=== PATIENT | male | born 1970 | race Caucasian/White ===

== ENCOUNTER 2017-03-12 16:18 | Emergency (ER) | payer OTHER ==
[~2017-03-12] VITALS: Ht 170.2 cm; Wt 85.0 kg
[~2017-03-12 16:18] MED LIST: HYDR25 PO; PRED20 PO
[2017-03-12 17:00] VITALS: BP 153/90; PULSE 70; RESP 18; TEMP 98.7; O2SAT 95
--- NOTE | 2017-03-12 20:44 | PD ---
HPI Chief Complaint: Psychiatric Symptoms Time Seen by Provider: 20:40 Travel History International Travel<30 days: No Contact w/Intl Traveler<30days: No Traveled to known affect area: No History of Present Illness HPI 46-year-old male presents to the ED under Reynoso act for psychiatric evaluation. The patient was transferred from [facility]. Her Reynoso act paperwork the patient states he was feeling suicidal and planned to overdose. On presentation the patient does endorse suicidal thoughts and intent to overdose. He endorses extensive psychiatric history, previous suicide attempts and previous psychiatric hospitalization. He has a history of mitral valve replacement but currently denies chest pain or any other somatic symptoms. PFSH Past Medical History Autoimmune Disease: No Bipolar Disorder: Yes Anxiety: Yes Depression: Yes Heart Rhythm Problems: No Cancer: No Cardiac Catheterization: Yes Cardiovascular Problems: Yes (AORTIC VALVE REPLACEMENT) High Cholesterol: Yes Chest Pain: Yes Congestive Heart Failure: No Diabetes: No Diminished Hearing: No Endocrine: No Genitourinary: No Hypertension: Yes Immune Disorder: No Musculoskeletal: No Neurologic: No Psychiatric: Yes Reproductive: No Respiratory: No Past Surgical History Coronary Artery Bypass Graft: No Valve Replacement: Yes (PORCINE HEART VALVE REPLACEMENT 2010) Other Surgery: Yes Family History Family Myocardial Infarction: Yes (FATHER, MATERNAL GRANDFATHER) Social History Alcohol Use: Yes (OCCASIONALLY) Tobacco Use: Yes (2PPW) Substance Use: No Allergies-Medications (Allergen,Severity, Reaction): Coded Allergies: No Known Allergies (Unverified , 12/25/14) Reported Meds & Prescriptions Reported Meds & Active Scripts Active Deltasone (Prednisone) 20 Mg Tab 20 Mg PO BID Atarax 25 Mg Tab (Hydroxyzine Hcl) 25 Mg Tab 25-50 Mg PO Q6 Review of Systems Except as stated in HPI: all other systems reviewed are Neg Physical Exam Narrative GENERAL: Well-nourished, well-developed cooperative white male in no acute distress. SKIN: Focused skin assessment warm/dry. Well-healed midline incision of the chest. No signs of infection. HEAD: Normocephalic. Leroy-sized hairless scar over the left ear. EYES: No scleral icterus. No injection or drainage. NECK: Supple, trachea midline. No JVD or lymphadenopathy. CARDIOVASCULAR: Regular rate and rhythm without murmurs, gallops, or rubs. RESPIRATORY: Breath sounds clear and equal bilaterally. No accessory muscle use. GASTROINTESTINAL: Abdomen soft, protuberant, non-tender, nondistended. Active bowel sounds. MUSCULOSKELETAL: No cyanosis, or edema. Moves extremities spontaneously. BACK: Nontender without obvious deformity. No CVA tenderness. Data Data Last Documented VS Vital Signs Date Time Temp Pulse Resp B/P Pulse Ox O2 Delivery O2 Flow Rate FiO2 03/12/17 17:00 98.7 70 18 153/90 95 Room Air Orders Diet Regular Basic (03/12/17 Dinner) MDM Medical Decision Making Medical Screen Exam Complete: Yes Emergency Medical Condition: Yes Differential Diagnosis Adjustment disorder versus anxiety versus bipolar versus depression versus dementia versus electrolyte disorder versus malingering versus mood disorder versus ODD versus psychosis versus PTSD versus schizophrenia versus schizoaffective disorder versus substance-induced mood disorder versus other Narrative Course 46-year-old male presents to the ED under Reynoso act for psychiatric evaluation. The patient was transferred from [facility]. Her Reynoso act paperwork the patient states he was feeling suicidal and planned to overdose. On presentation the patient does endorse suicidal thoughts and intent to overdose. He endorses extensive psychiatric history, previous suicide attempts and previous psychiatric hospitalization. He has a history of mitral valve replacement but currently denies chest pain or any other somatic symptoms. Vitals reviewed. Physical exam is unremarkable. I reviewed the lab work from the transferring hospital and there are no concerning abnormalities. This patient is medically cleared for psychiatric evaluation. Please see psychiatric notes for disposition. Diagnosis Primary Impression: Medical clearance for psychiatric admission Frances Aragon Mar 12, 2017 20:44
[2017-03-12 21:59] VITALS: BP 160/82; PULSE 64; RESP 18; O2SAT 97
[2017-03-13 02:14] VITALS: BP 137/72; PULSE 56; RESP 19; TEMP 97.5; O2SAT 96
[2017-03-13 06:00] VITALS: BP 152/95; PULSE 61; RESP 18; TEMP 97.5; O2SAT 96
--- NOTE | 2017-03-13 11:14 | PD ---
History of Present Illness Chief Complaint: Psychiatric Symptoms Time Seen by Provider: 11:00 Travel History International Travel<30 Days: No Contact w/Intl Traveler<30days: No Known affected area: No Legal Status Legal Status: Reynoso Act Reynoso Act Signed By: [facility] History of Present Illness: History of Present Illness HPI 46-year-old male with a reported history of depression and anxiety, hx of alcohol abuse who presents to the ED under Reynoso act for psychiatric evaluation. The patient was transferred from [facility] after he presented there with complaints of " having suicidal thoughts w a plan to overdose. EMR is reviewed. One previous ED visit in 2014 for evaluation f anxiety as well as ETOH. he was monitored in [facility] and he did not present any behavioral concerns and no suicidality. This morning he is alert, oriented and cooperative. States " I feel better. I had a lot on my mind. I need counseling. I needed someone to point me in the right direction. I want to apply for disability and get on the right t rack. He acknowledges he reported feeling suicidal and attributes to feeling overwhelmed after he lost his wallet. He does not appear significantly depressed or anxious. There is no psychosis, no fadia. At this time he denies any suicidal or homicidal ideation, intent or plan.He is future oriented and is planning on initiating treatment w [facility] as well as getting all his information in order to apply for social security disability. . PFSH Past Medical History Autoimmune Disease: No Bipolar Disorder: Yes Anxiety: Yes Depression: Yes Heart Rhythm Problems: No Cancer: No Cardiac Catheterization: Yes Cardiovascular Problems: Yes (AORTIC VALVE REPLACEMENT) High Cholesterol: Yes Chest Pain: Yes Congestive Heart Failure: No Diabetes: No Diminished Hearing: No Endocrine: No Genitourinary: No Hypertension: Yes Immune Disorder: No Musculoskeletal: No Neurologic: No Psychiatric: Yes Reproductive: No Respiratory: No Past Surgical History Coronary Artery Bypass Graft: No Valve Replacement: Yes (PORCINE HEART VALVE REPLACEMENT 2010) Other Surgery: Yes Psychiatric History Psychiatric History Hx Psychiatric Treatment: Reports PSYCHIATRIC HISTORY and treated for ANXIETY/DEPRESSION History of Inpatient Treatment: Yes Guns or firearms in home: No Social History Single male. Currently unemployed. Living with his mother. Hx Alcohol Use: Yes (OCCASIONALLY) Hx Tobacco Use: Yes (2PPW) Hx Substance Use: No Other Substances Used: FREE OF ALCOHOL SINCE 2014. DENIES ANY DRUGS. Hx of Substance Use Treatment: Yes Family Psychiatric History Negative Allergies-Medications (Allergen,Severity, Reaction): Coded Allergies: No Known Allergies (Unverified , 12/25/14) Reported Meds & Prescriptions Reported Meds & Active Scripts Active Deltasone (Prednisone) 20 Mg Tab 20 Mg PO BID Atarax 25 Mg Tab (Hydroxyzine Hcl) 25 Mg Tab 25-50 Mg PO Q6 Review of Systems Except as stated in HPI: all other systems reviewed are Neg Exam Alert: Yes [place]: Person (ox4) Mood: Calm Affect: Appropriate Speech: Clear, Logical Eye Contact: Normal Memory Intact: Comment (No impairment) Hallucinations: Other (Negative) Delusions: No Suicidal: Ideation (Negative) Homicidal: Ideation (Negative) Insight/Judgement Poor. Not impaired. MDM Medical Decision Making Medical Record Reviewed: Yes Assessment/Plan 46 year old male with hx of alcohol abuse as well as reported history of depression and anxiety who was placed under a BA a fter he reported suicidal ideation with intent to overdose. The patient did not make any attempt at harming himself. He was monitored and presented no suicidality. Furthermore he presented future oriented with plans to initiate counseling as well as plans to apply for social security. At [facility] he does nto met criteria for BA. BA will be lifted. He will follow up with [facility] and staff will attempt to schedule and appointment for him in [place]. Orders Diet Regular Basic (03/12/17 Dinner) Diet Regular Basic (03/13/17 Breakfast) Results Vital Signs Date Time Temp Pulse Resp B/P Pulse Ox O2 Delivery O2 Flow Rate FiO2 03/13/17 06:00 97.5 61 18 152/95 96 03/13/17 02:14 97.5 56 19 137/72 96 03/12/17 21:59 64 18 160/82 97 03/12/17 17:00 98.7 70 18 153/90 95 Room Air Diagnosis Primary Impression: Medical clearance for psychiatric admission Additional Impression: Adjustment disorder Psychiatrically Cleared: Yes Referrals: [facility] (Out patient) call for appointment Departure Forms: Tests/Procedures Patient Instructions: General Instructions, Stress (ED), Mood Disorders (ED) Med/ Other Pt Specific Info: No Change to Meds Disposition: 01 DISCHARGE HOME Condition: Stable Problem Qualifiers Additional Impression: Adjustment disorder Qualified Code: F43.23 - Adjustment disorder with mixed anxiety and depressed mood Ava Rubio Mar 13, 2017 11:14
== END 2017-03-13 11:33 | disposition home or self-care (01) ==
LOC: NEPJ 16:18
DX: F43.23 Adjustment disorder with mixed anxiety and depressed mood (principal); F31.9 Bipolar disorder, unspecified; F41.9 Anxiety disorder, unspecified; E78.00 Pure hypercholesterolemia, unspecified; I10 Essential (primary) hypertension; F17.200 Nicotine dependence, unspecified, uncomplicated; Z95.2 Presence of prosthetic heart valve
CPT/HCPCS: 99284

== ENCOUNTER 2018-01-14 23:49 | Inpatient (IN) | payer OTHER ==
[~2018-01-14] VITALS: Ht 167.6 cm; Wt 117.5 kg
[2018-01-15 00:03] VITALS: BP 126/73; PULSE 80; RESP 18; TEMP 98.5; O2SAT 100
[2018-01-15 00:28] VITALS: BP 162/77; PULSE 74; RESP 18; TEMP 99.2; O2SAT 94
--- NOTE | 2018-01-15 00:38 | PD ---
HPI Chief Complaint: Psychiatric Symptoms Time Seen by Provider: 00:38 Travel History International Travel<30 days: No Contact w/Intl Traveler<30days: No Traveled to known affect area: No History of Present Illness HPI 47-year-old male presents emergency department as a transfer from [facility] under Reynoso act. Patient tells me he has been depressed, worsening over the last several days.. He has plan to jump out of traffic. He has history of depression but has not been taking his medication. Denies any recent illnesses. He has no acute medical needs. He has no other symptoms to report. PFSH Past Medical History Autoimmune Disease: No Bipolar Disorder: Yes Anxiety: Yes Depression: Yes Heart Rhythm Problems: No Cancer: No Cardiac Catheterization: Yes Cardiovascular Problems: Yes (AORTIC VALVE REPAIR, HTN, HYPERLIPIDEMIA) High Cholesterol: Yes Chest Pain: Yes Congestive Heart Failure: No Diabetes: No Diminished Hearing: No Endocrine: No Genitourinary: No Hypertension: Yes Immune Disorder: No Musculoskeletal: No Neurologic: No Psychiatric: Yes Reproductive: No Past Surgical History Coronary Artery Bypass Graft: No Valve Replacement: Yes (PORCINE HEART VALVE REPLACEMENT 2010) Other Surgery: Yes Social History Alcohol Use: Yes (OCCASIONALLY) Tobacco Use: Yes (2PPW) Substance Use: No Allergies-Medications (Allergen,Severity, Reaction): Coded Allergies: No Known Allergies (Unverified , 12/25/14) Reported Meds & Prescriptions Reported Meds & Active Scripts Active Review of Systems Except as stated in HPI: all other systems reviewed are Neg Physical Exam Narrative GENERAL: Well-nourished male patient, in no acute distress. SKIN: Focused skin assessment warm/dry. HEAD: Atraumatic. Normocephalic. EYES: Pupils equal and round. No scleral icterus. No injection or drainage. ENT: No nasal bleeding or discharge. Mucous membranes pink and moist. NECK: Trachea midline. No JVD. CARDIOVASCULAR: Regular rate and rhythm. No murmur appreciated. RESPIRATORY: No accessory muscle use. Clear to auscultation. Breath sounds equal bilaterally. GASTROINTESTINAL: Abdomen soft, non-tender, nondistended. Hepatic and splenic margins not palpable. MUSCULOSKELETAL: No obvious deformities. No clubbing. No cyanosis. No edema. NEUROLOGICAL: Awake and alert. No obvious cranial nerve deficits. Motor grossly within normal limits. Normal speech. Data Data Last Documented VS Vital Signs Date Time Temp Pulse Resp B/P (MAP) Pulse Ox O2 Delivery O2 Flow Rate FiO2 01/15/18 00:28 99.2 74 18 162/77 (105) 94 Room Air Orders Orders Diet Regular Basic (01/15/18 Breakfast) Psych Screen (01/15/18 00:38) MDM Medical Decision Making Medical Screen Exam Complete: Yes Emergency Medical Condition: Yes Medical Record Reviewed: Yes Differential Diagnosis Mood disorder versus personality disorder versus adjustment reaction disorder Narrative Course 47-year-old male presents emergency department under a Reynoso act as a transfer from [facility]. Patient was medically cleared there. He has no further medical needs at this time. He remains medically cleared to undergo psychiatric screening for further evaluation and disposition. Mental health screening discussed with the patient. Psychiatric screen ordered. Diagnosis Primary Impression: Medical clearance for psychiatric admission Additional Impression: Adjustment disorder Qualified Codes: F43.21 - Adjustment disorder with depressed mood Condition: Stable Amy Romero Jan 15, 2018 00:38
[2018-01-15] MEDS ORDERED: ALUMINUM/MAGNESIUM/SIMETH 30 ML CUP PO PRN (07:30)
[2018-01-15] MEDS ORDERED: MAGNESIUM HYDROXIDE SUSP 30 ML CUP PO PRN (07:30)
[2018-01-15] MEDS ORDERED: LORazepam 2 MG/ML VIAL IV PUSH PRN ×4 (07:30)
[2018-01-15] MEDS ORDERED: LORazepam 0.5 MG TAB PO PRN (07:30)
[2018-01-15] MEDS ORDERED: LORazepam 2 MG TAB PO PRN (07:30)
[2018-01-15] MEDS ORDERED: ACETAMINOPHEN 325 MG TAB PO PRN (07:30)
[2018-01-15] MEDS ORDERED: FLUMAZENIL 0.5 MG/5 ML VIAL IV PUSH PRN (07:30)
[2018-01-15] MEDS ORDERED: LORazepam 2 MG/ML VIAL IM PRN ×2 (07:30)
[2018-01-15] MEDS ORDERED: LORazepam 1 MG TAB PO PRN ×2 (07:30)
[2018-01-15 08:55] VITALS: BP 160/90; PULSE 69; RESP 18; TEMP 99; O2SAT 98
[2018-01-15] MEDS: NICOTINE 21 MG/24 HR PATCH T-DERMAL SCH (09:00)
[2018-01-15 17:39] VITALS: BP 154/82; PULSE 76; RESP 18; TEMP 97; O2SAT 96
[2018-01-15] MEDS: REMOVE OLD NICODERM (NICOTINE) PATCH T-DERMAL SCH (21:00)
[2018-01-16 06:26] VITALS: BP 179/85; PULSE 63; RESP 18; TEMP 97.2
[2018-01-16 07:17] LABS: BICARBONATE 23.6 MEQ/L (21.0-32.0); BLOOD UREA NITROGEN 11 MG/DL (7-18); CALCIUM 8.7 MG/DL (8.5-10.1); CHLORIDE 106 MEQ/L (98-107); CHOLESTEROL 225 MG/DL (120-200); CREATININE 0.73 MG/DL (0.60-1.30); GLOMERULAR FILTRATION RATE 114 ML/MIN (>89); GLUCOSE,RANDOM 105 MG/DL (74-106); SODIUM (NA) 139 MEQ/L (136-145); TRIGLYCERIDES 309 MG/DL (42-150)
[2018-01-16 07:19] LABS: CHOLESTEROL/ HDL RATIO 6.19 RATIO; HDL CHOLESTEROL 36.3 MG/DL (40.0-60.0); LDL CHOLESTEROL 127 MG/DL (0-99)
[2018-01-16] MEDS: NICOTINE 21 MG/24 HR PATCH T-DERMAL SCH ×2 (09:00→11:03)
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
[2018-01-16] MEDS ORDERED: hydrOXYzine HCL 50 MG TAB PO PRN (10:00)
[2018-01-16] MEDS ORDERED: traZODone HCL 100 MG TAB PO PRN (10:00)
[2018-01-16] MEDS ORDERED: amLODIPine BESYLATE 5 MG TAB PO SCH (10:30)
[2018-01-16 10:38] LABS: HEMOGLOBIN A1C 5.3 % (4.3-6.0)
--- NOTE | 2018-01-16 12:57 | PD.CONS ---
HPI Service [facility] Hospitalists Consult Requested By Reason for Consult Diarrhea, HTN, assist with medical management Primary Care Physician No Primary Care Physician Diagnoses: History of Present Illness Written by Aliyah Gómez, acting as scribe for Dr. Valle on 01/16/18 at 13:06. 47-year-old male with past medical history significant for HTN, HLD, gout, COPD , aortic valve replacement, depression, tobacco and alcohol abuse who presented to [place] emergency department as a transfer from [facility] under [place] act. Patient had apparently recently lost his job and is homeless and placed plans of jumping out in front of traffic. He has been admitted to the inpatient psychiatry unit [facility] has been consulted to assist with ongoing medical management as well as evaluation of diarrhea and hypertension. Patient is ambulating the rogers in no acute distress. He denies any fevers, chills, shortness of breath or chest pain. He does endorse a cough and reports it is productive for yellow sputum, also reports wheezing. He quit smoking about 8 months ago and recently began smoking once again smoking about 1 pack per day. Patient states that his diarrhea originally began about a month ago and has been on and off with last episode occurring one week ago. He denies any black, or bloody stools. He does report some on and off nausea for the past month as well with no vomiting, nausea will sometimes be before meals and at times after meals. He denies any abdominal pain but on exam does report some tenderness. He is voiding without hesitancy or dysuria. He reports that he gets his medications from [facility] in [place] although admits to not taking these for some time now. Review of Systems Respiratory: COMPLAINS OF: Wheezing, Sputum production Gastrointestinal: COMPLAINS OF: Abdominal pain, Diarrhea, Nausea, DENIES: Black stools, Bloody stools, Constipation, Vomiting, Difficulty Swallowing Neurologic: DENIES: Headache Except as stated in HPI: all other systems reviewed are Neg Past Family Social History Allergies: Coded Allergies: No Known Allergies (Unverified Allergy, Unknown, 01/15/18) Past Medical History Hypertension Hyperlipidemia Gout COPD Depression Aortic valve malformation Past Surgical History Aortic valve replacement in 2010 Heart catheterizations 2 (2010) Reported Medications Reported Meds & Active Scripts Active Reported Aspir-Low (Aspirin) 81 Mg Tabdr Famotidine 40 Mg Tab 40 Mg PO HS Simvastatin 40 Mg Tab 40 Mg PO HS Isosorbide Mononitrate ER (Isosorbide Mononitrate) 30 Mg Shawn 30 Mg PO DAILY Proair Hfa 8.5 GM Inh (Albuterol Sulfate) 90 Mcg/Act Aer 1 Puff INH Q4H PRN 108 mcg/actuation Active Ordered Medications Current Medications Medications (Trade) Dose Ordered Sig/Jeremías Route Start Time Stop Time Status Last Admin (Tylenol) 650 mg Q4H PRN PO 01/15/18 07:30 (Milk Of Magnesia Liq) 30 ml DAILY PRN PO 01/15/18 07:30 (Mag-Al Plus Susp Liq) 30 ml Q6H PRN PO 01/15/18 07:30 (Habitrol 21 Mg Patch.24 Hr) 1 patch DAILY T-DERMAL 01/15/18 09:00 (Romazicon Inj) 0.2 mg Q1M PRN IV PUSH 01/15/18 07:30 (Ativan) 1 mg Q4H PRN PO 01/15/18 07:30 (Ativan Inj) 1 mg Q4H PRN IV PUSH 01/15/18 07:30 (Ativan) 2 mg Q2H PRN PO 01/15/18 07:30 (Ativan Inj) 2 mg Q2H PRN IV PUSH 01/15/18 07:30 (Ativan Inj) 2 mg Q1H PRN IV PUSH 01/15/18 07:30 (Ativan Inj) 2 mg Q15M PRN IV PUSH 01/15/18 07:30 Miscellaneous Information 1 HS T-DERMAL 01/15/18 21:00 (Atarax) 50 mg Q6H PRN PO 01/16/18 10:00 (Desyrel) 100 mg HS PRN PO 01/16/18 10:00 (Vitamin B1) 100 mg DAILY PO 01/17/18 09:00 (Folate) 1 mg DAILY PO 01/17/18 09:00 (Zofran Odt) 4 mg Q6H PRN PO 01/16/18 13:00 (Duoneb Neb) 1 ampule Q4HR NEB PRN NEB 01/16/18 16:00 (Deltasone) 40 mg DAILY PO 01/17/18 09:00 01/22/18 08:59 (Duoneb Neb) 1 ampule QID NEB NEB 01/16/18 16:00 (Zithromax) 500 mg ONCE ONCE PO 01/16/18 14:00 01/16/18 14:01 (Zithromax) 250 mg DAILY PO 01/17/18 09:00 01/21/18 08:59 (Pepcid) 40 mg HS PO 01/16/18 21:00 (Ecotrin Ec) 81 mg DAILY PO 01/17/18 09:00 (Catapres) 0.1 mg Q6H PRN PO 01/16/18 14:00 Family History Father: of massive heart attack Grandfather: Heart attack Social History Tobacco: Quit smoking 8 months ago and recently started smoking once again 1 pack per day Alcohol use: Quit 6 months ago, drink once again on Tuesday. Patient reports a history of relapse and will drink about 10 beers per sitting. Illicit drug use: Denies Currently homeless, recently fired from [employer] job Physical Exam Vital Signs Vital Signs Date Time Temp Pulse Resp B/P (MAP) Pulse Ox O2 Delivery O2 Flow Rate FiO2 01/16/18 06:26 97.2 63 18 179/85 (116) 01/15/18 17:39 97.0 76 18 154/82 (106) 96 Physical Exam GENERAL: This is a well-developed obese male, in no apparent distress. Ambulating in the hallways. SKIN: No rashes, ecchymoses or lesions. Cool and dry. HEAD: Atraumatic. Normocephalic. EYES: Pupils equal round and reactive. No scleral icterus. No injection or drainage. ENT: Nose without bleeding, purulent drainage. Throat without erythema. Airway patent. NECK: Trachea midline. No JVD. CARDIOVASCULAR: Regular rate and rhythm, 2/6 murmur, no gallops, or rubs. RESPIRATORY: Bilateral expiratory wheezing throughout, no rales, or rhonchi. GASTROINTESTINAL: Abdomen soft, round, obese, tenderness across upper portion.No palpable masses. No guarding. Normal active bowel sounds. MUSCULOSKELETAL: Extremities without clubbing, cyanosis, or edema. No joint tenderness, effusion, or edema noted. No calf tenderness. NEUROLOGICAL: Awake and alert 3. Cranial nerves II through XII grossly intact. Motor and sensory grossly within normal limits. Five out of 5 muscle strength in all muscle groups. Normal speech. Laboratory Laboratory Tests Test 01/16/18 06:06 Blood Urea Nitrogen 11 Creatinine 0.73 Random Glucose 105 Calcium Level 8.7 Sodium Level 139 Potassium Level 4.3 Chloride Level 106 Carbon Dioxide Level 23.6 Anion Gap 9 Estimat Glomerular Filtration Rate 114 Hemoglobin A1c 5.3 Triglycerides Level 309 Cholesterol Level 225 LDL Cholesterol 127 HDL Cholesterol 36.3 Cholesterol/HDL Ratio 6.19 Result Diagram: 01/16/18 06 Assessment and Plan Assessment and Plan 47-year-old male with past medical history significant for HTN, HLD, gout, COPD , aortic valve replacement, depression, tobacco and alcohol abuse who presented to [place] emergency department as a transfer from [facility] under [place] act. Patient had apparently recently lost his job and is homeless and placed plans of jumping out in front of traffic. He has been admitted to the inpatient psychiatry unit [facility] has been consulted to assist with ongoing medical management. Depression/SI - Treatment plan per psychiatry, greatly appreciated HTN, uncontrolled Hx AV replacement (non-mechanical) HLD - Med list updated. Will continue isosorbide with parameters -Clonidine as needed -Monitor heart rate and blood pressure closely due to diarrhea as well as noncompliance with medications previously -Continue low-dose aspirin. -Lipid profile reviewed, patient noncompliant with statin. Check LFTs and resume simvastatin if LFTs are normal -Heart healthy diet COPD, exacerbated - + Wheezing along with productive cough, low-grade temperature yesterday around midnight, 99.2 -We will schedule duo nebs 4 times a day, as needed as needed for shortness of breath and wheezing -Short course of oral prednisone 40 mg 5 days, + productive sputum, treat with azithromycin course -Monitor response clinically Diarrhea Nausea -Ongoing on and off for the past month, no diarrhea since his arrival to psychiatry unit. -We will check stool for enteric pathogen, KUB due to abdominal tenderness and nausea. Check C. difficile patient develops diarrhea. -Pepcid 40 mg nightly, Zofran as needed for nausea -BMP from today reviewed, unremarkable Tobacco/alcohol abuse -Smoking and alcohol cessation advised, nicotine patch -Previously quit drinking 6 months ago, unlikely to go through DTs - CIWA, folic acid and thiamine DVT prophylaxis-ambulating Discussed with patient and nurse. Thank you for this consultation, will continue to follow along. Discussed Condition With This note was transcribed by bonnie Gómez. I, Dr. Dylon Valle personally performed the history, physical exam, and medical decision making; and confirmed the accuracy of the information in the transcribed note. Authenticated by Dr. Dylon Valle on 01/16/18 at 13:11. Aliyah Gómez Jan 16, 2018 12:57 Dylon Valle MD Jan 16, 2018 13:11
[2018-01-16] MEDS ORDERED: ONDANSETRON ODT 4 MG TAB PO PRN (13:00)
[2018-01-16] MEDS ORDERED: ASPI81TA19 (13:12)
[2018-01-16] MEDS ORDERED: ISOS30TA3 PO (13:12)
[2018-01-16] MEDS ORDERED: SIMV40TA PO (13:12)
[2018-01-16] MEDS ORDERED: ALBUAER3 INH (13:12)
[2018-01-16] MEDS ORDERED: FAMO40TA PO (13:12)
[2018-01-16] MEDS ORDERED: cloNIDine HCL 0.1 MG TAB PO PRN (14:00)
[2018-01-16] MEDS ORDERED: AZITHROMYCIN 250 MG TAB PO ONE (14:00)
[2018-01-16 14:23] LABS: ALBUMIN 3.4 GM/DL (3.4-5.0); DIRECT BILIRUBIN ADULT 0.1 MG/DL (0.0-0.2)
[2018-01-16 14:24] LABS: INDIRECT BILIRUBIN 0.2 MG/DL (0.0-0.8); TOTAL BILIRUBIN ADULT 0.3 MG/DL (0.2-1.0); TOTAL PROTEIN 6.8 GM/DL (6.4-8.2)
[2018-01-16 15:11] VITALS: BP 154/77; PULSE 71; RESP 18; TEMP 96.6; O2SAT 97
[2018-01-16] MEDS: RESP: ALBUTEROL 2.5 MG/IPRATROPIUM 0.5 MG NEB (SCH) NEB ×2 (16:00→19:47)
[2018-01-16] MEDS ORDERED: RESP: ALBUTEROL 2.5 MG/IPRATROPIUM 0.5 MG NEB (SCH) NEB (16:00)
--- NOTE | 2018-01-16 18:15 | RADRPT ---
EXAM DATE/TIME: 01/16/2018 16:09 [place] COMPARISON: No previous studies available for comparison. INDICATIONS : Abdominal pain. MEDICAL HISTORY : None. SURGICAL HISTORY : None. ENCOUNTER: Initial ACUITY: 1 month PAIN SCORE: 10/10 LOCATION: Bilateral upper quadrant abdomen. FINDINGS: Supine view of the abdomen was performed. The abdominal bowel gas pattern is normal. No abnormal ma sses, calcifications, or organomegaly is seen. The visualized lower lungs are clear. The osseous str uctures are unremarkable. CONCLUSION: No dilated loops of small or large bowel. Shaan Moncada MD on January 16, 2018 at 18:13 Board Certified Radiologist. This report was verified electronically.
[2018-01-16] MEDS: PRAVASTATIN SOD 80 MG TAB PO SCH (20:37)
[2018-01-16] MEDS: FAMOTIDINE 20 MG TAB PO SCH (20:37)
[2018-01-16] MEDS: REMOVE OLD NICODERM (NICOTINE) PATCH T-DERMAL SCH (21:00)
[2018-01-17 05:57] VITALS: BP 125/64; PULSE 56; RESP 17; TEMP 98.4; O2SAT 97
[2018-01-17 06:11] VITALS: BP 125/64; PULSE 56; RESP 19; TEMP 98.4; O2SAT 97
[2018-01-17] MEDS: RESP: ALBUTEROL 2.5 MG/IPRATROPIUM 0.5 MG NEB (SCH) NEB ×4 (08:00→20:00)
[2018-01-17] MEDS: FOLIC ACID 1 MG TAB PO SCH (08:07)
[2018-01-17] MEDS: AZITHROMYCIN 250 MG TAB PO SCH (08:07)
[2018-01-17] MEDS: ISOSORBIDE MONONITRATE 30 MG CR TAB (IMDUR) PO SCH (08:07)
[2018-01-17] MEDS: ASPIRIN EC 81 MG TABEC PO SCH (08:07)
[2018-01-17] MEDS: THIAMINE HCL 100 MG TAB PO SCH (08:08)
[2018-01-17] MEDS: predniSONE 20 MG TAB PO SCH ×2 (08:09→09:19)
[2018-01-17] MEDS ORDERED: amLODIPine BESYLATE 5 MG TAB PO SCH (09:00)
--- NOTE | 2018-01-17 10:22 | PD.TTN ---
Patient Problems 1. Discharge planning 2. Medication compliance 3. Knowledge deficit 4. Lack of coping skills Progress Toward Goals Provider Present: Dr. Jazzy Zhong Provider Input: 01/17/18 - Patient arrived in transfer from another hospital. Dr. Zhong reported the patient informed him that he will probably be suicidal for the next two to three days. Possible discharge Tuesday or . Psych Therapist Input: 01/17/18 - Counselor has not yet met this patient. Group Spec/RT/OT/ANTOINE Present: ELINA Calloway Group Spec/RT/OT/ANTOINE Input: 01/17/18 - No group participation. Discharge Plan [facility] Documentation Scribe: CHERELLE Stanley Date Resolved: January 17, 2018 Danna Wyman January 17, 2018 10:21
--- NOTE | 2018-01-17 12:26 | HHI.PYPN ---
Subjective Chief Complaint: Depression Remarks Patient seen and examined with nurse. Chart reviewed. Patient did not receive trazodone as this was ordered p.r.n.. Patient did have reported sleep difficulty but did not request hypnotic. Case discussed with nursing staff. No behavioral issues noted overnight. Case discussed in treatment team. On my examination today, the patient complains of irritability. He is ruminating on previous perceived injustices, particularly to do with his mother. He feels that she would change her expectations of patient so that he could never do right in her eyes. As an example, patient relates that she told him to go to scientology and then castigated him for becoming too involved in buddhist. Then, when he relapsed to substance use, mother told him to go to scientology once again. He denies any SI or HI presently, although he does insinuate that he might have some suicidal thoughts if discharged, and in context this does seem fairly manipulative. No psychotic symptoms. No acute physical complaints. Review of Systems Except as stated in HPI: all other systems reviewed are Neg Mental Status Examination Appearance: Appropriate Consciousness: Alert Orientation: x4 Motor Activity: Normal gait, Other (No motor abnormalities noted) Speech: Unremarkable Language: Adequate Fund of Knowledge: Adequate Attention and Concentration: Adequate Memory: Unremarkable (Grossly intact on clinical exam) Mood: Irritable Affect: Blunt Thought Process & Associations: Intact, Logical, Linear Thought Content: Appropriate Hallucination Type: None Delusion Type: None Suicidal Ideation: No Suicidal Plan: No Suicidal Intention: No Homicidal Ideation: No Homicidal Plan: No Homicidal Intention: No Insight: Fair Judgment: Impulsive Mental Status Exam Remarks No signs of withdrawal noted. Results Labs Date/Time Source Procedure Growth Status 01/16/18 00:00 Stool Stool - Final NO ENTERIC PATHOGENS DETECTED BY PCR... Complete Labs reviewed Vitals/IOs Vital Signs Date Time Temp Pulse Resp B/P (MAP) Pulse Ox O2 Delivery O2 Flow Rate FiO2 01/17/18 06:11 98.4 56 19 125/64 (84) 97 01/15/18 00:28 Room Air Assessment & Plan Problem List: (1) Adjustment disorder ICD Codes: F43.20 - Adjustment disorder, unspecified Status: Acute (2) Alcohol dependence ICD Codes: F10.20 - Alcohol dependence, uncomplicated Assessment & Plan I will schedule trazodone at bedtime to ensure that patient receives this medication. Hospitalist input noted and appreciated. Continue to monitor on the inpatient unit. Continue other medications and care as ordered. Justification for Cont. Inpt. Monitoring for impairment in safety, none noted Discharge Planning Anticipate discharge next 1-2 days Request HC Surrog/Guard Advoc?: No Problem Qualifiers (1) Adjustment disorder: Qualified Codes: F43.21 - Adjustment disorder with depressed mood Oracio Zhong MD January 17, 2018 12:26
--- NOTE | 2018-01-17 12:53 | HHI.PR ---
Subjective Remarks Follow-up visit for HTN, COPD exacerbation, and diarrhea. Patient seen and examined in the day room and appears to be in no acute distress. He denies any fevers, chills, nausea, vomiting or diarrhea. Some shortness of breath with exertion and still having a cough, nonproductive. He continues to state that he is very upset over losing his job, does not know what he will do once he leaves because he is also homeless. Nurse does not report any acute concerns. Objective Vitals Vital Signs Date Time Temp Pulse Resp B/P (MAP) Pulse Ox O2 Delivery O2 Flow Rate FiO2 01/17/18 06:11 98.4 56 19 125/64 (84) 97 01/17/18 05:57 98.4 56 17 125/64 (84) 97 01/16/18 15:11 96.6 71 18 154/77 (102) 97 I/O 01/16/18 01/16/18 01/16/18 01/17/18 01/17/18 01/17/18 07:00 15:00 23:00 07:00 15:00 23:00 Intake Total 360 ml Balance 360 ml Intake Oral 360 ml Result Diagram: 01/16/18 0606 Objective Remarks GENERAL: This is a well-developed obese male, in no apparent distress. SKIN: Cool and dry. HEAD: Atraumatic. Normocephalic. EYES: Pupils equal round and reactive. No scleral icterus. No injection or drainage. ENT: Nose without bleeding, purulent drainage. Throat without erythema. Airway patent. NECK: Trachea midline. No JVD. CARDIOVASCULAR: Regular rate and rhythm, 2/6 murmur, no gallops, or rubs. RESPIRATORY: Mild bilateral expiratory wheezing throughout, no rales, or rhonchi. GASTROINTESTINAL: Abdomen soft, round, obese, nontender, normoactive bowel sounds. MUSCULOSKELETAL: Extremities without clubbing, cyanosis, or edema. No joint tenderness, effusion, or edema noted. No calf tenderness. NEUROLOGICAL: Awake and alert 3. Cranial nerves II through XII grossly intact. Motor and sensory grossly within normal limits. Five out of 5 muscle strength in all muscle groups. Normal speech. A/P Assessment and Plan 47-year-old male with past medical history significant for HTN, HLD, gout, COPD , aortic valve replacement, depression, tobacco and alcohol abuse who presented to [place] emergency department as a transfer from [facility] under [facility] act. Patient had apparently recently lost his job and is homeless and placed plans of jumping out in front of traffic. He has been admitted to the inpatient psychiatry unit [facility] has been consulted to assist with ongoing medical management. Depression/SI - Treatment plan per psychiatry, greatly appreciated HTN, controlled Hx AV replacement (non-mechanical) HLD - Currently on isosorbide, BP much better today -Clonidine as needed -Continue low-dose aspirin and pravastatin -Heart healthy diet COPD, exacerbated - Continue duo nebs 4 times a day, as needed as needed for shortness of breath and wheezing -Short course of oral prednisone 40 mg 5 days, azithromycin course -Monitor response clinically, oxygen saturation 97% on room air. Diarrhea, resolved Nausea -Ongoing on and off for the past month, no diarrhea since his arrival to psychiatry unit. -Stool negative for C. difficile or enteric pathogen. No diarrhea reported. -KUB with no dilated loops of the small or large bowels. -Pepcid 40 mg nightly, Zofran as needed for nausea -BMP from 01/16 reviewed, unremarkable Tobacco/alcohol abuse -Smoking and alcohol cessation advised, nicotine patch -Previously quit drinking 6 months ago, unlikely to go through DTs - CIWA, folic acid and thiamine DVT prophylaxis-ambulating Discussed with patient and nurse. Aliyah Gómez January 17, 2018 12:53
[2018-01-17 18:38] VITALS: BP 131/66; PULSE 75; RESP 18; TEMP 98.2; O2SAT 96
[2018-01-17] MEDS ORDERED: traZODone HCL 100 MG TAB PO SCH (21:00)
[2018-01-17] MEDS: REMOVE OLD NICODERM (NICOTINE) PATCH T-DERMAL SCH (21:00)
[2018-01-17] MEDS: FAMOTIDINE 20 MG TAB PO SCH (21:37)
[2018-01-17] MEDS: PRAVASTATIN SOD 80 MG TAB PO SCH (21:37)
[2018-01-18 06:19] VITALS: BP 152/65; PULSE 64; RESP 20; TEMP 98; O2SAT 99
[2018-01-18] MEDS: AZITHROMYCIN 250 MG TAB PO SCH (08:17)
[2018-01-18] MEDS: predniSONE 20 MG TAB PO SCH (08:18)
[2018-01-18] MEDS: ISOSORBIDE MONONITRATE 30 MG CR TAB (IMDUR) PO SCH (08:18)
[2018-01-18] MEDS: FOLIC ACID 1 MG TAB PO SCH (08:18)
[2018-01-18] MEDS: ASPIRIN EC 81 MG TABEC PO SCH (08:18)
[2018-01-18] MEDS: NICOTINE 21 MG/24 HR PATCH T-DERMAL SCH (08:19)
[2018-01-18] MEDS: THIAMINE HCL 100 MG TAB PO SCH (08:19)
[2018-01-18] MEDS: RESP: ALBUTEROL 2.5 MG/IPRATROPIUM 0.5 MG NEB (SCH) NEB ×4 (09:53→20:00)
--- NOTE | 2018-01-18 10:52 | HHI.PYPN ---
Subjective Chief Complaint: Depression Remarks Patient seen and examined with nurse. Chart reviewed. Case discussed with nursing staff reports patient has been no behavioral problem but says that the patient was reporting that he felt like "slapping people." Case discussed in treatment team. On my examination today, there is a definite manipulative quality to the patient's presentation. He complains of poor sleep and we discussed titrating his trazodone for this. He complains of irritability and reports some vague violent thoughts towards "people who say mean things." He does not describe any homicidal ideation. He understands that any sort of violent behavior would likely be a legal and moral and result in legal sanction. He denies any suicidal ideation. No side effects from medications. No acute physical complaints. Review of Systems Except as stated in HPI: all other systems reviewed are Neg Mental Status Examination Appearance: Appropriate Consciousness: Alert Orientation: x4 Motor Activity: Normal gait, Other (No motor abnormalities noted) Speech: Unremarkable Language: Adequate Fund of Knowledge: Adequate Attention and Concentration: Adequate Memory: Unremarkable (Grossly intact on clinical exam) Mood: Irritable Affect: Blunt Thought Process & Associations: Intact, Logical, Goal directed, Linear Thought Content: Appropriate Hallucination Type: None Delusion Type: None Suicidal Ideation: No Suicidal Plan: No Suicidal Intention: No Homicidal Ideation: No (No homicidal ideation but see above) Homicidal Plan: No Homicidal Intention: No Insight: Fair Judgment: Impulsive Results Labs Date/Time Source Procedure Growth Status 01/16/18 00:00 Stool Stool - Final NO ENTERIC PATHOGENS DETECTED BY PCR... Complete Labs reviewed Vitals/IOs Vital Signs Date Time Temp Pulse Resp B/P (MAP) Pulse Ox O2 Delivery O2 Flow Rate FiO2 01/18/18 06:19 98.0 64 20 152/65 (94) 99 01/15/18 00:28 Room Air Assessment & Plan Problem List: (1) Adjustment disorder ICD Codes: F43.20 - Adjustment disorder, unspecified Status: Acute (2) Alcohol dependence ICD Codes: F10.20 - Alcohol dependence, uncomplicated Assessment & Plan Titrate trazodone to 150 mg at bedtime. Hospitalist input noted and appreciated. Continue to monitor on the inpatient unit. Continue other medications and care as ordered. Justification for Cont. Inpt. Med changes. No evidence of impairment in safety. Discharge Planning Possible discharge tomorrow or Tuesday Request HC Surrog/Guard Advoc?: No Problem Qualifiers (1) Adjustment disorder: Qualified Codes: F43.21 - Adjustment disorder with depressed mood Oracio Zhong MD January 18, 2018 10:52
--- NOTE | 2018-01-18 13:04 | HHI.PR ---
Subjective Remarks Follow-up visit for HTN, COPD exacerbation, and diarrhea. Patient seen and examined in his room. He reports that health winn he is feeling much better, denies any fevers, chills, n/v/d, headache or SOB. He continues to state he is frustrated over not being able to keep a job and the fact that he is homeless. He states he is still hopeless. Objective Vitals Vital Signs Date Time Temp Pulse Resp B/P (MAP) Pulse Ox O2 Delivery O2 Flow Rate FiO2 01/18/18 06:19 98.0 64 20 152/65 (94) 99 01/17/18 18:38 98.2 75 18 131/66 (87) 96 I/O 01/17/18 01/17/18 01/17/18 01/18/18 01/18/18 01/18/18 07:00 15:00 23:00 07:00 15:00 23:00 Intake Total 360 ml 360 ml Balance 360 ml 360 ml Intake Oral 360 ml 360 ml Result Diagram: 01/16/18 0606 Imaging Last Impressions Abdomen X-Ray 01/16/18 0000 Signed Impressions: Service Date/Time: Tuesday, January 16, 2018 16:09 - CONCLUSION: No dilated loops of small or large bowel. Shaan Moncada MD Objective Remarks GENERAL: This is a well-developed obese male, in no apparent distress. SKIN: Cool and dry. ENT: Nose without bleeding, purulent drainage. Throat without erythema. Airway patent. NECK: Trachea midline. CARDIOVASCULAR: Regular rate and rhythm, 2/6 murmur, no gallops, or rubs. RESPIRATORY: Mild bilateral expiratory wheezing throughout, no rales, or rhonchi. GASTROINTESTINAL: Abdomen soft, round, obese, nontender, normoactive bowel sounds. MUSCULOSKELETAL: Extremities without clubbing, cyanosis, or edema. No joint tenderness, effusion, or edema noted. No calf tenderness. NEUROLOGICAL: Awake and alert 3. Cranial nerves II through XII grossly intact. Motor and sensory grossly within normal limits. Five out of 5 muscle strength in all muscle groups. Normal speech. A/P Assessment and Plan 47-year-old male with past medical history significant for HTN, HLD, gout, COPD , aortic valve replacement, depression, tobacco and alcohol abuse who presented to [place] emergency department as a transfer from [facility] under [place] act. Patient had apparently recently lost his job and is homeless and placed plans of jumping out in front of traffic. He has been admitted to the inpatient psychiatry unit [facility] has been consulted to assist with ongoing medical management. Depression/SI - Treatment plan per psychiatry, greatly appreciated HTN, controlled Hx AV replacement (non-mechanical) HLD - Currently on isosorbide, BP much better today -Clonidine as needed -Continue low-dose aspirin and pravastatin -Heart healthy diet COPD, improved - Continue duo nebs 4 times a day, as needed as needed for shortness of breath and wheezing -Short course of oral prednisone 40 mg 5 days, azithromycin course -No respiratory complaints Diarrhea, resolved Nausea -Ongoing on and off for the past month, no diarrhea since his arrival to psychiatry unit. -Stool negative for C. difficile or enteric pathogen. No diarrhea reported. -KUB with no dilated loops of the small or large bowels. -Pepcid 40 mg nightly, Zofran as needed for nausea -BMP from 01/16 reviewed, unremarkable Tobacco/alcohol abuse -Smoking and alcohol cessation advised, nicotine patch -Previously quit drinking 6 months ago, unlikely to go through DTs - CIWA, folic acid and thiamine DVT prophylaxis-ambulating Discussed with patient and nurse. [facility] will sign off please reconsult if needed. Aliyah Gómez January 18, 2018 13:04
--- NOTE | 2018-01-18 13:28 | HHI.PR ---
Objective Vitals Vital Signs Date Time Temp Pulse Resp B/P (MAP) Pulse Ox O2 Delivery O2 Flow Rate FiO2 01/18/18 06:19 98.0 64 20 152/65 (94) 99 01/17/18 18:38 98.2 75 18 131/66 (87) 96 I/O 01/17/18 01/17/18 01/17/18 01/18/18 01/18/18 01/18/18 07:00 15:00 23:00 07:00 15:00 23:00 Intake Total 360 ml 360 ml Balance 360 ml 360 ml Intake Oral 360 ml 360 ml Result Diagram: 01/16/18 0606 Objective Remarks GENERAL: This is a well-developed obese male, in no apparent distress. SKIN: Cool and dry. HEAD: Atraumatic. Normocephalic. EYES: Pupils equal round and reactive. No scleral icterus. No injection or drainage. ENT: Nose without bleeding, purulent drainage. Throat without erythema. Airway patent. NECK: Trachea midline. No JVD. CARDIOVASCULAR: Regular rate and rhythm, 2/6 murmur, no gallops, or rubs. RESPIRATORY: Mild bilateral expiratory wheezing throughout, no rales, or rhonchi. GASTROINTESTINAL: Abdomen soft, round, obese, nontender, normoactive bowel sounds. MUSCULOSKELETAL: Extremities without clubbing, cyanosis, or edema. No joint tenderness, effusion, or edema noted. No calf tenderness. NEUROLOGICAL: Awake and alert 3. Cranial nerves II through XII grossly intact. Motor and sensory grossly within normal limits. Five out of 5 muscle strength in all muscle groups. Normal speech. A/P Assessment and Plan 47-year-old male with past medical history significant for HTN, HLD, gout, COPD , aortic valve replacement, depression, tobacco and alcohol abuse who presented to [place] emergency department as a transfer from [facility] under Reynoso act. Patient had apparently recently lost his job and is homeless and placed plans of jumping out in front of traffic. He has been admitted to the inpatient psychiatry unit [facility] has been consulted to assist with ongoing medical management. Depression/SI - Treatment plan per psychiatry, greatly appreciated HTN, controlled Hx AV replacement (non-mechanical) HLD - Currently on isosorbide, BP much better today -Clonidine as needed -Continue low-dose aspirin and pravastatin -Heart healthy diet COPD, exacerbated - Continue duo nebs 4 times a day, as needed as needed for shortness of breath and wheezing -Short course of oral prednisone 40 mg 5 days, azithromycin course -Monitor response clinically, oxygen saturation 97% on room air. Diarrhea, resolved Nausea -Ongoing on and off for the past month, no diarrhea since his arrival to psychiatry unit. -Stool negative for C. difficile or enteric pathogen. No diarrhea reported. -KUB with no dilated loops of the small or large bowels. -Pepcid 40 mg nightly, Zofran as needed for nausea -BMP from 01/16 reviewed, unremarkable Tobacco/alcohol abuse -Smoking and alcohol cessation advised, nicotine patch -Previously quit drinking 6 months ago, unlikely to go through DTs - CIWA, folic acid and thiamine DVT prophylaxis-ambulating Discussed with patient and nurse. Aliyah Gómez January 18, 2018 13:28
[2018-01-18 17:53] VITALS: BP 130/64; PULSE 78; RESP 18; TEMP 98.6; O2SAT 99
[2018-01-18] MEDS: REMOVE OLD NICODERM (NICOTINE) PATCH T-DERMAL SCH (21:00)
[2018-01-18] MEDS: traZODone HCL 50 MG TAB PO SCH (21:04)
[2018-01-18] MEDS: FAMOTIDINE 20 MG TAB PO SCH (21:05)
[2018-01-18] MEDS: PRAVASTATIN SOD 80 MG TAB PO SCH (21:07)
[2018-01-19 05:29] VITALS: BP 143/75; PULSE 72; RESP 16; TEMP 98; O2SAT 97
[2018-01-19] MEDS: RESP: ALBUTEROL 2.5 MG/IPRATROPIUM 0.5 MG NEB (SCH) NEB ×4 (08:00→20:00)
[2018-01-19] MEDS: ISOSORBIDE MONONITRATE 30 MG CR TAB (IMDUR) PO SCH (08:09)
[2018-01-19] MEDS: AZITHROMYCIN 250 MG TAB PO SCH (08:09)
[2018-01-19] MEDS: predniSONE 20 MG TAB PO SCH (08:09)
[2018-01-19] MEDS: FOLIC ACID 1 MG TAB PO SCH (08:09)
[2018-01-19] MEDS: THIAMINE HCL 100 MG TAB PO SCH (08:09)
[2018-01-19] MEDS: ASPIRIN EC 81 MG TABEC PO SCH (08:09)
[2018-01-19] MEDS: NICOTINE 21 MG/24 HR PATCH T-DERMAL SCH (09:00)
--- NOTE | 2018-01-19 11:26 | HHI.PYPN ---
Subjective Chief Complaint: Depression Remarks Patient seen and examined. Chart reviewed. Case discussed with nursing staff. No behavioral issues noted overnight. On my examination today, patient presents as less irritable. No reported violent thoughts or homicidal ideation. No SI. Does express some anxiety about discharge given homeless situation. Slept better with increased dose of trazodone. No side effects from medications. No physical complaints. Review of Systems Except as stated in HPI: all other systems reviewed are Neg Mental Status Examination Appearance: Appropriate Consciousness: Alert Orientation: x4 Motor Activity: Normal gait, Other (No abnormal motor movements noted) Speech: Unremarkable Language: Adequate Fund of Knowledge: Adequate Attention and Concentration: Adequate Memory: Unremarkable (Grossly intact on clinical exam) Mood: Appropriate, Anxious (Mild) Affect: Appropriate Thought Process & Associations: Intact, Logical, Goal directed, Linear Thought Content: Appropriate Hallucination Type: None Delusion Type: None Suicidal Ideation: No Suicidal Plan: No Suicidal Intention: No Homicidal Ideation: No Homicidal Plan: No Homicidal Intention: No Insight: AdequateFair Judgment: Adequate Results Labs Date/Time Source Procedure Growth Status 01/16/18 00:00 Stool Stool - Final NO ENTERIC PATHOGENS DETECTED BY PCR... Complete Labs reviewed Vitals/IOs Vital Signs Date Time Temp Pulse Resp B/P (MAP) Pulse Ox O2 Delivery O2 Flow Rate FiO2 01/19/18 05:29 98.0 72 16 143/75 (97) 97 Assessment & Plan Problem List: (1) Adjustment disorder ICD Codes: F43.20 - Adjustment disorder, unspecified Status: Acute (2) Alcohol dependence ICD Codes: F10.20 - Alcohol dependence, uncomplicated Assessment & Plan Continue trazodone as ordered. Hospitalist input noted and appreciated. Continue other medications and care as ordered. Justification for Cont. Inpt. Monitoring for impairment in safety, none noted Discharge Planning Anticipate discharge tomorrow, Tuesday Request HC Surrog/Guard Advoc?: No Problem Qualifiers (1) Adjustment disorder: Qualified Codes: F43.21 - Adjustment disorder with depressed mood Oracio Zhong MD January 19, 2018 11:26
[2018-01-19 18:09] VITALS: BP 160/79; PULSE 92; RESP 16; TEMP 97.8; O2SAT 96
[2018-01-19] MEDS: REMOVE OLD NICODERM (NICOTINE) PATCH T-DERMAL SCH (21:00)
[2018-01-19] MEDS: traZODone HCL 50 MG TAB PO SCH (21:13)
[2018-01-19] MEDS: PRAVASTATIN SOD 80 MG TAB PO SCH (21:13)
[2018-01-19] MEDS: FAMOTIDINE 20 MG TAB PO SCH (21:14)
[2018-01-20 05:29] VITALS: BP 149/70; PULSE 78; RESP 16; TEMP 97.6; O2SAT 98
[2018-01-20 06:39] VITALS: BP 151/89; PULSE 64; RESP 20; TEMP 97.5; O2SAT 98
[2018-01-20] MEDS: RESP: ALBUTEROL 2.5 MG/IPRATROPIUM 0.5 MG NEB (SCH) NEB ×2 (08:08→11:35)
[2018-01-20] MEDS: ISOSORBIDE MONONITRATE 30 MG CR TAB (IMDUR) PO SCH (08:55)
[2018-01-20] MEDS: FOLIC ACID 1 MG TAB PO SCH (08:55)
[2018-01-20] MEDS: THIAMINE HCL 100 MG TAB PO SCH (08:55)
[2018-01-20] MEDS: AZITHROMYCIN 250 MG TAB PO SCH (08:55)
[2018-01-20] MEDS: ASPIRIN EC 81 MG TABEC PO SCH (08:55)
[2018-01-20] MEDS: predniSONE 20 MG TAB PO SCH (08:59)
[2018-01-20] MEDS: NICOTINE 21 MG/24 HR PATCH T-DERMAL SCH (08:59)
--- NOTE | 2018-01-20 12:50 | HHI.PYPN ---
Subjective Chief Complaint: Depression Remarks Patient seen and examined with nurse. Chart reviewed. Case discussed with nursing staff. On my examination today, patient presents as quite manipulative. He openly bargains to stay until Tuesday. He initially complains of anticipatory anxiety. When it is clear that this is insufficient to avert discharge, he says that he has been having dreams including one where he is standing in a graveyard. Finally, he says he is feeling suicidal and homicidal in the context of a discharge, emphasizing that we do not have to worry about him engaging in suicidality or violence while he remains on the inpatient unit. No side effects from medications. No physical complaints. Review of Systems Except as stated in HPI: all other systems reviewed are Neg Mental Status Examination Appearance: Appropriate Consciousness: Alert Orientation: x4 Motor Activity: Normal gait, Other (No motor abnormalities noted) Speech: Unremarkable Language: Adequate Fund of Knowledge: Adequate Attention and Concentration: Adequate Memory: Unremarkable (Remains grossly intact on clinical exam) Mood: Anxious Affect: Appropriate Thought Process & Associations: Intact, Logical, Goal directed, Linear Thought Content: Appropriate Hallucination Type: None Delusion Type: None Suicidal Ideation: Yes (Vague) Suicidal Plan: No Suicidal Intention: No Homicidal Ideation: Yes (Does not want to hurt anyone on the inpatient unit, no specific victim voiced) Homicidal Plan: No Homicidal Intention: No Insight: Adequate Judgment: Adequate Results Labs Date/Time Source Procedure Growth Status 01/16/18 00:00 Stool Stool - Final NO ENTERIC PATHOGENS DETECTED BY PCR... Complete Labs reviewed Vitals/IOs Vital Signs Date Time Temp Pulse Resp B/P (MAP) Pulse Ox O2 Delivery O2 Flow Rate FiO2 01/20/18 06:39 97.5 64 20 151/89 (109) 98 Assessment & Plan Problem List: (1) Malingering ICD Codes: Z76.5 - Malingerer [conscious simulation] (2) Alcohol dependence ICD Codes: F10.20 - Alcohol dependence, uncomplicated Assessment & Plan Patient is clearly malingering for usp at this point. Out of a great abundance of caution and given our paucity of history with this patient, I will monitor him on the unit over the weekend and plan to discharge Tuesday. Continue current psychotropics as ordered. Continue other care as ordered. Justification for Cont. Inpt. Monitoring for impairment in safety, none noted Discharge Planning Discharge Tuesday Request HC Surrog/Guard Advoc?: No Oracio Zhong MD January 20, 2018 12:50
[2018-01-20] MEDS: RESP: ALBUTEROL 2.5 MG/IPRATROPIUM 0.5 MG NEB (PRN) NEB (17:20)
[2018-01-20] MEDS: REMOVE OLD NICODERM (NICOTINE) PATCH T-DERMAL SCH (21:00)
[2018-01-20] MEDS: PRAVASTATIN SOD 80 MG TAB PO SCH (22:01)
[2018-01-20] MEDS: traZODone HCL 50 MG TAB PO SCH (22:02)
[2018-01-20] MEDS: FAMOTIDINE 20 MG TAB PO SCH (22:04)
[2018-01-21 06:48] VITALS: BP 150/65; PULSE 75; RESP 17; TEMP 98.4; O2SAT 98
[2018-01-21] MEDS: NICOTINE 21 MG/24 HR PATCH T-DERMAL SCH (09:00)
[2018-01-21] MEDS: ASPIRIN EC 81 MG TABEC PO SCH (09:51)
[2018-01-21] MEDS: ISOSORBIDE MONONITRATE 30 MG CR TAB (IMDUR) PO SCH (09:52)
[2018-01-21] MEDS: FOLIC ACID 1 MG TAB PO SCH (09:52)
[2018-01-21] MEDS: THIAMINE HCL 100 MG TAB PO SCH (09:52)
[2018-01-21] MEDS: predniSONE 20 MG TAB PO SCH (09:52)
--- NOTE | 2018-01-21 12:44 | HHI.PYPN ---
Subjective Chief Complaint: Depression Remarks Patient was seen and case discussed with nursing. We discussed patient's social situation at length. He describes various stressors such as homelessness and inability to keep a job. Seems to have an external locus of control blaming others. He is motivated to get a job and get back on track. He denies suicidal or homicidal ideation intent or plan. Compliant with medications Mental Status Examination Appearance: Appropriate Consciousness: Alert Orientation: x4 Motor Activity: Normal gait, Other (No motor abnormalities noted) Speech: Unremarkable Language: Adequate Fund of Knowledge: Adequate Attention and Concentration: Adequate Memory: Unremarkable (Remains grossly intact on clinical exam) Mood: Anxious Affect: Appropriate Thought Process & Associations: Intact, Logical, Goal directed, Linear Thought Content: Appropriate Hallucination Type: None Delusion Type: None Suicidal Ideation: No Suicidal Plan: No Suicidal Intention: No Homicidal Ideation: No Homicidal Plan: No Homicidal Intention: No Insight: Adequate Judgment: Adequate Results Labs Date/Time Source Procedure Growth Status 01/16/18 00:00 Stool Stool - Final NO ENTERIC PATHOGENS DETECTED BY PCR... Complete Vitals/IOs Vital Signs Date Time Temp Pulse Resp B/P (MAP) Pulse Ox O2 Delivery O2 Flow Rate FiO2 01/21/18 06:48 98.4 75 17 150/65 (93) 98 Intake and Output 01/21/18 01/21/18 01/22/18 08:00 16:00 00:00 Intake Total 480 ml Balance 480 ml Assessment & Plan Problem List: (1) Malingering ICD Codes: Z76.5 - Malingerer [conscious simulation] (2) Alcohol dependence ICD Codes: F10.20 - Alcohol dependence, uncomplicated Assessment & Plan Continue current treatment plan Justification for Cont. Inpt. Patient would decompensate in a less restrictive setting Request HC Surrog/Guard Advoc?: No Raul Nunez DO January 21, 2018 12:44
[2018-01-21] MEDS: RESP: ALBUTEROL 2.5 MG/IPRATROPIUM 0.5 MG NEB (PRN) NEB (15:25)
[2018-01-21 18:30] VITALS: BP 122/60; PULSE 86; RESP 18; TEMP 98.2; O2SAT 95
[2018-01-21] MEDS: FAMOTIDINE 20 MG TAB PO SCH (21:00)
[2018-01-21] MEDS: REMOVE OLD NICODERM (NICOTINE) PATCH T-DERMAL SCH (21:00)
[2018-01-21] MEDS: traZODone HCL 50 MG TAB PO SCH (22:00)
[2018-01-21] MEDS: PRAVASTATIN SOD 80 MG TAB PO SCH (22:00)
[2018-01-22 05:37] VITALS: BP 135/71; PULSE 70; RESP 18; TEMP 97.6; O2SAT 96
[2018-01-22] MEDS: NICOTINE 21 MG/24 HR PATCH T-DERMAL SCH (09:00)
[2018-01-22] MEDS: FOLIC ACID 1 MG TAB PO SCH (09:14)
[2018-01-22] MEDS: THIAMINE HCL 100 MG TAB PO SCH (09:14)
[2018-01-22] MEDS: ASPIRIN EC 81 MG TABEC PO SCH (09:14)
[2018-01-22] MEDS: ISOSORBIDE MONONITRATE 30 MG CR TAB (IMDUR) PO SCH (09:14)
[2018-01-22] MEDS: RESP: ALBUTEROL 2.5 MG/IPRATROPIUM 0.5 MG NEB (PRN) NEB (12:20)
--- NOTE | 2018-01-22 13:33 | HHI.PYPN ---
Subjective Chief Complaint: Depression Remarks Patient was seen and case discussed with nursing. Patient is more hopeful towards the future. He is less anxious about finding work and maintaining his his living. Sleep has improved. Compliant with his medications. He denies having suicidal thoughts ideation or plan. Mental Status Examination Appearance: Appropriate Consciousness: Alert Orientation: x4 Motor Activity: Normal gait, Other (No motor abnormalities noted) Speech: Unremarkable Language: Adequate Fund of Knowledge: Adequate Attention and Concentration: Adequate Memory: Unremarkable (Remains grossly intact on clinical exam) Mood: Anxious Affect: Appropriate Thought Process & Associations: Intact, Logical, Goal directed, Linear Thought Content: Appropriate Hallucination Type: None Delusion Type: None Suicidal Ideation: No Suicidal Plan: No Suicidal Intention: No Homicidal Ideation: No Homicidal Plan: No Homicidal Intention: No Insight: Adequate Judgment: Adequate Results Labs Date/Time Source Procedure Growth Status 01/16/18 00:00 Stool Stool - Final NO ENTERIC PATHOGENS DETECTED BY PCR... Complete Vitals/IOs Vital Signs Date Time Temp Pulse Resp B/P (MAP) Pulse Ox O2 Delivery O2 Flow Rate FiO2 01/22/18 05:37 97.6 70 18 135/71 (92) 96 Assessment & Plan Problem List: (1) Malingering ICD Codes: Z76.5 - Malingerer [conscious simulation] (2) Alcohol dependence ICD Codes: F10.20 - Alcohol dependence, uncomplicated Assessment & Plan Continue current treatment plan Justification for Cont. Inpt. Patient would decompensate in a less restrictive setting Request HC Surrog/Guard Advoc?: No Raul Nunez DO January 22, 2018 13:33
[2018-01-22 17:58] VITALS: BP 140/62; PULSE 75; RESP 18; TEMP 97.3
[2018-01-22] MEDS: traZODone HCL 50 MG TAB PO SCH (20:48)
[2018-01-22] MEDS: PRAVASTATIN SOD 80 MG TAB PO SCH (20:48)
[2018-01-22] MEDS: REMOVE OLD NICODERM (NICOTINE) PATCH T-DERMAL SCH (20:48)
[2018-01-22] MEDS: FAMOTIDINE 20 MG TAB PO SCH (20:48)
[2018-01-23 05:47] VITALS: BP 134/69; PULSE 64; RESP 16; TEMP 97.3; O2SAT 96
[2018-01-23] MEDS: NICOTINE 21 MG/24 HR PATCH T-DERMAL SCH (09:00)
[2018-01-23] MEDS: FOLIC ACID 1 MG TAB PO SCH (09:17)
[2018-01-23] MEDS: ISOSORBIDE MONONITRATE 30 MG CR TAB (IMDUR) PO SCH (09:17)
[2018-01-23] MEDS: THIAMINE HCL 100 MG TAB PO SCH (09:17)
[2018-01-23] MEDS: ASPIRIN EC 81 MG TABEC PO SCH (09:17)
[2018-01-23] MEDS ORDERED: TRAZ50TA12 PO (10:54)
[2018-01-23] MEDS ORDERED: PRAV80TA PO (10:54)
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
== END 2018-01-23 14:25 | disposition home or self-care (01) | DRG 881 ==
LOC: NED 23:49 → NEDA 01-15 07:30 → H270 01-15 08:55 → H260 01-17 10:40
PROVIDERS: ADMIT Psychiatry & Neurology Psychiatry; ATTEND Psychiatry & Neurology Psychiatry
DX: F43.21 Adjustment disorder with depressed mood (principal); R45.851 Suicidal ideations; J44.1 Chronic obstructive pulmonary disease with (acute) exacerbation; F10.20 Alcohol dependence, uncomplicated; F60.9 Personality disorder, unspecified; I10 Essential (primary) hypertension; F17.210 Nicotine dependence, cigarettes, uncomplicated; E78.5 Hyperlipidemia, unspecified; F41.9 Anxiety disorder, unspecified; F31.9 Bipolar disorder, unspecified; M10.9 Gout, unspecified; R19.7 Diarrhea, unspecified; R11.0 Nausea; Z56.0 Unemployment, unspecified; Z95.2 Presence of prosthetic heart valve; Z59.0 Homelessness; Z76.5 Malingerer [conscious simulation]; Z82.49 Family history of ischemic heart disease and other diseases of the circulatory system; Z91.14 Patient's other noncompliance with medication regimen; Z91.19 Patient's noncompliance with other medical treatment and regimen; Z91.5 Personal history of self-harm; Z81.1 Family history of alcohol abuse and dependence
CPT/HCPCS: 74018; 80048; 80061; 80076; 83036; 87493; 87506; 94640; 94664; 99285; J7512

== ENCOUNTER 2018-02-10 14:02 | Observation (INO) | payer OTHER ==
[~2018-02-10] VITALS: Ht 167.6 cm; Wt 115.0 kg
[2018-02-10] VITALS (9 sets, daily range): BP systolic 105–123; BP diastolic 55–68; PULSE 59–71; RESP 16–20; TEMP 97.4–98.7; O2SAT 95–98
[~2018-02-10 14:02] MED LIST changes: +ALBUAER3 INH; +ASPI81TA19; +FAMO40TA PO; -HYDR25 PO; +ISOS30TA3 PO; +PRAV80TA PO; -PRED20 PO; +TRAZ50TA12 PO
[2018-02-10] MEDS ORDERED: SODIUM CHLORIDE 0.9% FLUSH 10 ML FLUSH IVF PRN (14:45)
[2018-02-10] MEDS ORDERED: ASPIRIN 325 MG TAB PO ONE (14:45)
--- NOTE | 2018-02-10 14:51 | PD ---
HPI Chief Complaint: Chest Pain Time Seen by Provider: 14:26 Travel History International Travel<30 days: No Contact w/Intl Traveler<30days: No Traveled to known affect area: No History of Present Illness HPI This patient complains of chest pain. Duration is 2 hours. Severity is moderate. Location is left mid chest. Feels like an aching pressure. Not exertional. Symptoms have no alleviating factors. No exacerbating factors. No fever or productive cough or shortness of breath. History of aortic valve replacement but no documented coronary blockage per patient PFSH Past Medical History Autoimmune Disease: No Bipolar Disorder: Yes Anxiety: Yes Depression: Yes Heart Rhythm Problems: No Cancer: No Cardiac Catheterization: Yes Cardiovascular Problems: Yes (AORTIC VALVE REPAIR, HTN, HYPERLIPIDEMIA) High Cholesterol: Yes Chest Pain: Yes Congestive Heart Failure: No Diabetes: No Diminished Hearing: No Endocrine: No Genitourinary: No Hypertension: Yes Immune Disorder: No Musculoskeletal: No Neurologic: No Psychiatric: Yes Reproductive: No Respiratory: Yes (COPD) Tetanus Vaccination: > 5 Years Influenza Vaccination: No Past Surgical History Coronary Artery Bypass Graft: No Valve Replacement: Yes (PORCINE HEART VALVE REPLACEMENT 2010) Other Surgery: Yes Family History Family Myocardial Infarction: Yes (FATHER, MATERNAL GRANDFATHER) Social History Alcohol Use: Yes (OCASSIONALLY) Tobacco Use: Yes (2PPW) Substance Use: Yes Allergies-Medications (Allergen,Severity, Reaction): Coded Allergies: No Known Allergies (Verified Allergy, Unknown, 02/10/18) Reported Meds & Prescriptions Reported Meds & Active Scripts Active No Active Prescriptions or Reported Medications Review of Systems General / Constitutional: No: Fever Eyes: No: Visual changes HENT: No: Headaches Cardiovascular: Positive: Chest Pain or Discomfort Respiratory: No: Shortness of Breath Gastrointestinal: No: Abdominal Pain Genitourinary: No: Dysuria Musculoskeletal: No: Pain Skin: No Rash Neurologic: No: Weakness Psychiatric: No: Depression Endocrine: No: Polydipsia Hematologic/Lymphatic: No: Easy Bruising Physical Exam Narrative GENERAL: Morbidly obese, well-developed patient in no apparent distress. SKIN: Focused skin assessment reveals no rash and nodules. Skin is Warm and dry. HEAD: Atraumatic. Normocephalic. EYES: Pupils equal and round. No scleral icterus. No injection or drainage. ENT: No nasal bleeding or discharge. Mucous membranes pink and moist. NECK: Trachea midline. No JVD. CARDIOVASCULAR: Regular rate and rhythm. No murmur appreciated. RESPIRATORY: No accessory muscle use. Clear to auscultation. Breath sounds equal bilaterally. GASTROINTESTINAL: Abdomen soft, non-tender, nondistended. Hepatic and splenic margins not palpable. MUSCULOSKELETAL: No obvious deformities. No clubbing. No cyanosis. No edema. NEUROLOGICAL: Awake and alert. No obvious cranial nerve deficits. Motor grossly within normal limits. Normal speech. PSYCHIATRIC: Appropriate mood and affect; insight and judgment normal. Data Data Last Documented VS Vital Signs Date Time Temp Pulse Resp B/P (MAP) Pulse Ox O2 Delivery O2 Flow Rate FiO2 02/10/18 14:45 20 97 Room Air 02/10/18 14:38 97.8 68 Orders Orders Electrocardiogram (02/10/18 14:43) Basic Metabolic Panel (Bmp) (02/10/18 14:43) Ckmb (Isoenzyme) Profile (02/10/18 14:43) Complete Blood Count With Diff (02/10/18 14:43) Magnesium (Mg) (02/10/18 14:43) Prothrombin Time / Inr (Pt) (02/10/18 14:43) Act Partial Throm Time (Ptt) (02/10/18 14:43) Troponin I (02/10/18 14:43) Chest, Single Ap (02/10/18 14:43) Ecg Monitoring (02/10/18 14:43) Iv Access Insert/Monitor (02/10/18 14:43) Oximetry (02/10/18 14:43) Aspirin (Aspirin) (02/10/18 14:45) Sodium Chloride 0.9% Flush (Ns Flush) (02/10/18 14:45) Labs Laboratory Tests Test 02/10/18 14:50 White Blood Count 5.3 TH/MM3 Red Blood Count 4.60 MIL/MM3 Hemoglobin 14.1 GM/DL Hematocrit 41.6 % Mean Corpuscular Volume 90.5 FL Mean Corpuscular Hemoglobin 30.6 PG Mean Corpuscular Hemoglobin Concent 33.8 % Red Cell Distribution Width 14.2 % Platelet Count 277 TH/MM3 Mean Platelet Volume 7.2 FL Neutrophils (%) (Auto) 59.3 % Lymphocytes (%) (Auto) 27.8 % Monocytes (%) (Auto) 11.3 % Eosinophils (%) (Auto) 0.9 % Basophils (%) (Auto) 0.7 % Neutrophils # (Auto) 3.1 TH/MM3 Lymphocytes # (Auto) 1.5 TH/MM3 Monocytes # (Auto) 0.6 TH/MM3 Eosinophils # (Auto) 0.0 TH/MM3 Basophils # (Auto) 0.0 TH/MM3 CBC Comment DIFF FINAL Differential Comment Prothrombin Time 10.1 SEC Prothromb Time International Ratio 1.0 RATIO Activated Partial Thromboplast Time 25.2 SEC Blood Urea Nitrogen 14 MG/DL Creatinine 0.85 MG/DL Random Glucose 104 MG/DL Calcium Level 9.0 MG/DL Magnesium Level 2.2 MG/DL Sodium Level 141 MEQ/L Potassium Level 3.6 MEQ/L Chloride Level 104 MEQ/L Carbon Dioxide Level 27.8 MEQ/L Anion Gap 9 MEQ/L Estimat Glomerular Filtration Rate 96 ML/MIN Total Creatine Kinase 76 U/L Troponin I LESS THAN 0.02 NG/ML MDM Medical Decision Making Medical Screen Exam Complete: Yes Emergency Medical Condition: Yes Medical Record Reviewed: Yes Differential Diagnosis Differential diagnosis includes NE, angina, pericarditis, pleurisy, GERD, anxiety. Narrative Course I have reviewed the patient's electronic medical record. Reviewed his stress test from 2015 which did not show any active ischemia He has not had any testing since 2014. He is a morbidly obese smoker with 2 hours of chest pressure IV placed and labs sent I gave him an aspirin I reviewed his EKG which shows sinus rhythm. There are no acute ST elevations. He does have rather diffuse T-wave inversion. I reviewed a prior EKG which shows very similar findings. In fact, lateral T-wave inversions were more pronounced on the old EKG than today's. Chest x-ray is negative Labs are normal including cardiac enzymes Patient has atypical chest pain but multiple risk factors He will be a 23 hour observation in the chest pain center in order to rule out cardiac cause of his symptoms Diagnosis Primary Impression: Chest pain Qualified Codes: R07.9 - Chest pain, unspecified Additional Impressions: Hx of aortic valve replacement Morbid obesity with BMI of 40.0-44.9, adult Admitting Information Admitting Physician Requests: Observation Scripts No Active Prescriptions or Reported Meds Ricci Santana MD February 10, 2018 14:51
--- NOTE | 2018-02-10 14:59 | RADRPT ---
EXAM DATE: 02/10/2018 2:56 PM EDT AGE/SEX: 47 years / Male INDICATIONS: Bilateral chest and shortness of breath. CLINICAL DATA: This is the patient's initial encounter. Patient reports that signs and symptoms have been present for 3 days and indicates a pain score of 4/10. MEDICAL/SURGICAL HISTORY: None. CABG. COMPARISON: [facility] [place], CHEST SINGLE AP, 12/12/2014. . FINDINGS: Postsurgical features of median sternotomy. Cardiac silhouette is enlarged. No new focal pleural or p arenchymal opacities. Remainder of the exam is unchanged. CONCLUSION: 1. Stable compensated cardiomegaly. 2. No significant interval change. Electronically signed by: Frank Prescott MD 02/10/2018 2:58 PM EDT
[2018-02-10 15:09] LABS: AUTOMATED NEUTROPHIL # 3.1 TH/MM3 (1.8-7.7); BASOPHIL % 0.7 % (0.0-2.0); EOSINOPHIL % 0.9 % (0.0-4.0); HEMATOCRIT 41.6 % (39.0-51.0); HEMOGLOBIN 14.1 GM/DL (13.0-17.0); LYMPH % 27.8 % (9.0-44.0); LYMPHOCYTE # 1.5 TH/MM3 (1.0-4.8); MEAN CELL VOLUME 90.5 FL (80.0-100.0); MEAN CORPUSCULAR HEMOGLOBIN 30.6 PG (27.0-34.0); MEAN CORPUSCULAR HGB CONC 33.8 % (32.0-36.0); MEAN PLATELET VOLUME 7.2 FL (7.0-11.0); MONO % 11.3 % (0.0-8.0); MONOCYTE # 0.6 TH/MM3 (0-0.9); NEUT % 59.3 % (16.0-70.0); PLATELET COUNT 277 TH/MM3 (150-450); RED CELL DISTRIBUTION WIDTH 14.2 % (11.6-17.2); WHITE BLOOD COUNT 5.3 TH/MM3 (4.0-11.0)
[2018-02-10 15:26] LABS: PROTHROMBIN TIME - PATIENT 10.1 SEC (9.8-11.6)
[2018-02-10 15:36] LABS: BICARBONATE 27.8 MEQ/L (21.0-32.0); BLOOD UREA NITROGEN 14 MG/DL (7-18); CHLORIDE 104 MEQ/L (98-107); CREATININE 0.85 MG/DL (0.60-1.30); GLOMERULAR FILTRATION RATE 96 ML/MIN (>89); GLUCOSE,RANDOM 104 MG/DL (74-106); MAGNESIUM 2.2 MG/DL (1.5-2.5); SODIUM (NA) 141 MEQ/L (136-145)
[2018-02-10 15:38] LABS: TROPONIN I LESS THAN 0.02 NG/ML (0.02-0.05)
[2018-02-10] MEDS ORDERED: ACETAMINOPHEN 500 MG CPLT PO PRN (16:30)
[2018-02-10] MEDS ORDERED: NITROGLYCERIN 0.4 MG SL 25 TABS/BTL SL PRN (16:30)
[2018-02-10] MEDS ORDERED: ONDANSETRON ODT 4 MG TAB PO PRN (16:30)
--- NOTE | 2018-02-10 16:46 | HHI.HP ---
HPI Primary Care Physician No Primary Care Physician Chief Complaint Chest pain History of Present Illness 47-year-old male with history of hypertension, hyperlipidemia, and bipolar disorder presents to emergency room for further evaluation of nonexertional chest pain and headache. Onset 12:30 PM. Location left anterior chest. Characterized as a quick sharp, aching pain. Moderate in severity. No radiation. Duration constant. Associated symptoms dyspnea and hurt to take a deep breath. Denied nausea, vomiting, or diaphoresis. No known precipitating or relieving factors. Endorses similar pain in the past and completed exercise stress test a few years ago. Frontal headache improving. Headache in frontal and occipital regions. Reports the last 3 weeks suffering from severe depression with suicidal ideation. Formulating a plan to walk into traffic. Endorses on way to hospital he "seriously considered walking into traffic." Requests to speak with psychiatry. Review of Systems General: No fatigue,weakness, fever, chills, or recent illness. Has been in his general state of health. HEENT: No HUFFMAN, no vision changes, no nasal congestion or drainage, no dysphasia CV: Continues to have chest pain as stated above. RESP: No SOB, cough, wheeze, or recent URI. GI: No nausea, vomiting, bowel changes, diarrhea, constipation, pain, distention , melena, or blood in the stool. : No dysuria, urgency, frequency EXT: No lower leg edema, no paraesthesias MS: No discomfort, injury, or change in ROM NEURO: No change in memory, difficulty with balance, LOC, motor/sensory deficits PSYCH: History of anxiety, depression, suicide attempts, and bipolar disorder. Currently experiences suicidal ideations, stating he is considering walking into traffic. Reports "severe depression" over the last 3 weeks, due to recently losing his job. SKIN: No rashes, no concerning lesions Past Family Social History Allergies: Coded Allergies: No Known Allergies (Verified Allergy, Unknown, 02/10/18) Past Medical History Hyperlipidemia, hypertension, anxiety, depression, suicide attempt, bipolar disorder, COPD, remote alcohol abuse Past Surgical History Aortic valve replacement 12/09/10 Reported Medications Reported Meds & Active Scripts Active No Active Prescriptions or Reported Medications Active Ordered Medications Current Medications Medications (Trade) Dose Ordered Sig/Jeremías Route Start Time Stop Time Status Last Admin (NS Flush) 2 ml UNSCH PRN IVF 02/10/18 14:45 02/10/18 14:56 (NS Flush) 2 ml BID IV FLUSH 02/10/18 21:00 (Tylenol) 500 mg Q4H PRN PO 02/10/18 16:30 (Nitrostat Sl) 0.4 mg Q5M PRN SL 02/10/18 16:30 (Aspirin) 325 mg DAILY PO 02/11/18 09:00 (Zofran Odt) 4 mg Q6H PRN PO 02/10/18 16:30 Family History Father from myocardial infarction age 55 Social History Known hypertension and hyperlipidemia currently not on any medications. No known coronary artery disease or diabetes. Current smoker 1 pack/day followed by 3-4 days of not smoking. Recovering alcoholic, quit drinking in 2010, relapsed then quit drinking again in 2014. Single. Homeless. Recently lost his job. Active, stating he walks "everywhere." Past cardiac testing 11/06/14 Lexiscan-Lung ischemia. There may be an old inferolateral small infarct. EF 51%. 12/09/10 Aortic valve replacement states valve replacement required due to excessive alcohol use. Does not follow with a nurse wound or primary MD. Physical Exam Vital Signs Vital Signs Date Time Temp Pulse Resp B/P (MAP) Pulse Ox O2 Delivery O2 Flow Rate FiO2 02/10/18 14:45 20 97 Room Air 02/10/18 14:38 97.8 68 20 123/68 (86) 97 Room Air 02/10/18 14:30 69 18 98 Room Air 02/10/18 14:22 98.7 71 20 122/60 (80) 96 Physical Exam GENERAL: Alert WN, WD, NAD, pleasant, , obese male resting comfortably in bed HEAD: NC, AT CV: RRR, 3/6 systolic murmur, no rub, no gallop, no JVD, S1-S2 no S3-S4. Chest wall nontender with palpation. RESP: Diminished lungs throughout bilateral, with faint expiratory wheeze, no crackles or rhonchi. Symmetrical chest rise, nonlabored, able to speak in full sentences ABD: Soft, NT, ND, no masses, positive bowel tones EXT: Pulses +2x4, no dependent edema MS: Normal tone x4 extremities, no obvious deformities, full range of motion NEURO: CN II through CN XII grossly intact, motor strength 5/5 PSYCH: A+O x3, flat affect, appropriate speech, mood, pleasant. Questionable insight and judgment SKIN: Normal turgor, normal texture, no lesions, no rashes, brisk cap refill, even hair distribution Laboratory Laboratory Tests Test 02/10/18 14:50 White Blood Count 5.3 Red Blood Count 4.60 Hemoglobin 14.1 Hematocrit 41.6 Mean Corpuscular Volume 90.5 Mean Corpuscular Hemoglobin 30.6 Mean Corpuscular Hemoglobin Concent 33.8 Red Cell Distribution Width 14.2 Platelet Count 277 Mean Platelet Volume 7.2 Neutrophils (%) (Auto) 59.3 Lymphocytes (%) (Auto) 27.8 Monocytes (%) (Auto) 11.3 Eosinophils (%) (Auto) 0.9 Basophils (%) (Auto) 0.7 Neutrophils # (Auto) 3.1 Lymphocytes # (Auto) 1.5 Monocytes # (Auto) 0.6 Eosinophils # (Auto) 0.0 Basophils # (Auto) 0.0 CBC Comment DIFF FINAL Differential Comment Prothrombin Time 10.1 Prothromb Time International Ratio 1.0 Activated Partial Thromboplast Time 25.2 Blood Urea Nitrogen 14 Creatinine 0.85 Random Glucose 104 Calcium Level 9.0 Magnesium Level 2.2 Sodium Level 141 Potassium Level 3.6 Chloride Level 104 Carbon Dioxide Level 27.8 Anion Gap 9 Estimat Glomerular Filtration Rate 96 Total Creatine Kinase 76 Troponin I LESS THAN 0.02 Result Diagram: 02/10/18 1450 02/10/18 1450 Imaging Last 48 hours Impressions Chest X-Ray 02/10/18 1443 Signed Impressions: CONCLUSION: 1. Stable compensated cardiomegaly. 2. No significant interval change. Course EKG NSR, diffuse T wave inversions-unchanged from previous EKGs Caprini VTE Risk Assessment Caprini VTE Risk Assessment: No/Low Risk (score <= 1) Caprini Risk Assessment Model Point Value = 1 Point Value = 2 Point Value = 3 Point Value = 5 Age 41-60 Minor surgery BMI > 25 kg/m2 Swollen legs Varicose veins or History of unexplained or recurrent spontaneous Oral contraceptives or hormone replacement Sepsis (< 1 month) Serious lung disease, including pneumonia (< 1 month) Abnormal pulmonary function Acute myocardial infarction Congestive heart failure (< 1 month) History of inflammatory bowel disease Medical patient at bed rest Age 61-74 Arthroscopic surgery Major open surgery (> 45 min) Laparoscopic surgery (> 45 min) Malignancy Confined to bed (> 72 hours) Immobilizing plaster cast Central venous access Age >= 75 History of VTE Family history of VTE Factor V Leiden Prothrombin [id number] Lupus anticoagulant Anticardiolipin antibodies Elevated serum homocysteine Heparin-induced thrombocytopenia Other congenital or acquired thrombophilia Stroke (< 1 month) Elective arthroplasty Hip, pelvis, or leg fracture Acute spinal cord injury (< 1 month) Prophylaxis Regimen Total Risk Factor Score Risk Level Prophylaxis Regimen 0-1 Low Early ambulation 2 Moderate Order ONE of the following: *Sequential Compression Device (SCD) *Heparin 5000 units SQ BID 3-4 Higher Order ONE of the following medications: *Heparin 5000 units SQ TID *Enoxaparin/Lovenox 40 mg SQ daily (WT < 150 kg, CrCl > 30 mL/min) *Enoxaparin/Lovenox 30 mg SQ daily (WT < 150 kg, CrCl > 10-29 mL/min) *Enoxaparin/Lovenox 30 mg SQ BID (WT < 150 kg, CrCl > 30 mL/min) AND/OR *Sequential Compression Device (SCD) 5 or more Highest Order ONE of the following medications: *Heparin 5000 units SQ TID (Preferred with Epidurals) *Enoxaparin/Lovenox 40 mg SQ daily (WT < 150 kg, CrCl > 30 mL/min) *Enoxaparin/Lovenox 30 mg SQ daily (WT < 150 kg, CrCl > 10-29 mL/min) *Enoxaparin/Lovenox 30 mg SQ BID (WT < 150 kg, CrCl > 30 mL/min) AND *Sequential Compression Device (SCD) Assessment and Plan Assessment and Plan #1 Chest pain-admitted to chest pain center. Rule out with 3 sets of EKGs, cardiac enzymes, monitor on telemetry overnight. Will be seen and evaluated by Dr. Quoc De La Torre. If ruled out likely will complete exercise cardiac testing as nuclear portion will be required due to baseline changes. #2 Tobacco use-strongly encouraged stress importance of tobacco cessation. Instructed to quit smoking. #3 Suicidal ideation-psychiatry consult due to reported suicidal ideation with plan Encouraged establishing with a local primary care provider. Grace De Los Santos February 10, 2018 16:46
[2018-02-10 19:10] LABS: TROPONIN I LESS THAN 0.02 NG/ML (0.02-0.05)
[2018-02-10] MEDS: SODIUM CHLORIDE 0.9% FLUSH 10 ML FLUSH IV FLUSH SCH (21:55)
[2018-02-10 22:36] LABS: TROPONIN I LESS THAN 0.02 NG/ML (0.02-0.05)
[2018-02-11] VITALS (8 sets, daily range): BP systolic 103–122; BP diastolic 61–72; PULSE 57–65; RESP 18–20; TEMP 97.5–98.2; O2SAT 96–99
[2018-02-11] MEDS ORDERED: ASPIRIN 325 MG TAB PO SCH (09:00)
[2018-02-11] MEDS: SODIUM CHLORIDE 0.9% FLUSH 10 ML FLUSH IV FLUSH SCH (09:11)
[2018-02-11] MEDS ORDERED: REGADENOSON INJ 0.4 MG/5 ML SYR ONE (10:38)
--- NOTE | 2018-02-11 12:34 | RADRPT ---
EXAM DATE: 02/11/2018 12:06 PM EDT AGE/SEX: 47 years / Male INDICATIONS:Angina. . Left chest pain with dyspnea. CLINICAL DATA: This is the patient's initial encounter. Patient reports that signs and symptoms have been present for 1 day and indicates a pain score of 6/10. MEDICAL/SURGICAL HISTORY: Hypercholesterolemia. Hypertension. Chronic obstructive pulmonary d isease. Smoker. . Aortic valve replacement. Cardiac catherization. COMPARISON: Prior myocardial SPECT report November 06, 2014. DOSE: 35 mCi Tc 99m Myoview at stress 11 mCi [id number] at rest 0.4 mg Lexiscan STRESS SYMPTOMS: Chest pain, dyspnea and headache. EJECTION FRACTION: 63 % TECHNIQUE: The patient underwent pharmacologic stress with infusion of prescribed dose. Continuous ECG tracing was monitored during stress. Gated SPECT imaging was performed after stress and conventi onal SPECT imaging was performed at rest. The examination was performed on a SPECT/CT scanner, both attenuation and non-corrected datasets were reviewed. FINDINGS: Distribution: The maximum perfused segment at stress is in the anterolateral wall. Perfusion Study: A fixed defect which is small is again seen involving the inferolateral wall. This is unchanged per the report. No reversible defects identified.. Gated Study: There are intact wall motion and wall thickening without hypokinetic or dyskinetic segm ents. The ejection fraction is calculated at 63%. RISK CATEGORY: Low (<1% Annual Motality Rate) CONCLUSION: 1. No reversible defects to suggest acute ischemia. Electronically signed by: Shaan Cevallos MD 02/11/2018 12:33 PM EDT
--- NOTE | 2018-02-11 12:38 | TR ---
Date Performed: 02/11/2018 Time Performed: 10:45:06 DOCTOR: Quoc De La Torre DRUG LIST: ASA CATAPRES CLINICAL HISTORY: CHEST PAIN REASON FOR TEST: CHEST PAIN REASON FOR ENDING: OBSERVATION: CONCLUSION: COMMENTS: Lexiscan stress test was performed under standard four minute protocol. Radionuclide was injected one minute prior to ending the test. No electrocardiographic abormalities were present t o suggest ischemia. Nuclear imaging and interpretation are pending.
--- NOTE | 2018-02-11 14:12 | PD.PSY.CON ---
Provisional Diagnosis Admission Date February 10, 2018 at 15:51 [place] I. Adjustment disorder with depressed mood vs major depressive disorder, recurrent , severe, without psychosis, r/o malignant [place] II. Deferred [place] III. Chest pain History of Present Illness Service Psychiatry Consult Requested By ER Reason for Consult Depression and SI Primary Care Physician No Primary Care Physician HPI The patient is 47-year-old man, homeless in the [facility], single, employed, with self-reported psychiatric history of depression, bipolar disorder , no previous psychiatric hospitalizations, no previous suicide attempts, with medical history of hypertension, hyperlipidemia, whop resents to emergency room for further evaluation of nonexertional chest pain and headache. Onset 12:30 PM. Location left anterior chest. Characterized as a quick sharp, aching pain. Moderate in severity. No radiation. Duration constant. Associated symptoms dyspnea and hurt to take a deep breath. Stress test was recommended, already done and results are unremarkable. Troponin serious is also negative. She was consulted to psychiatry due to symptoms of depression and suicidal ideation. Psychiatric evaluation I find a patient that is irritable, visibly upset, but reporting that he feels much better now. The patient reports that he has been very depressed, feeling hopeless, helpless, worthless, and having suicidal thoughts with a plan of jumping in front of a car for several weeks now. She reports that as a main stressor for his depression his current economical situation, homelessness, lack of connectedness with family and friends, sense of abandonment and rejection and his chest pain. At this moment the patient reports that if he continues feeling so bad "I am not going to have other option than killing myself". He was able to contract for safety in the ER. He denies visual and auditory hallucinations, denies homicidal ideation. Is logical, coherent and relevant. Goal-directed. Oriented 3. Patient denies the use of illegal drugs and alcohol Review of Systems Constitutional: DENIES: Diaphoretic episodes, Fatigue, Fever, Weight gain, Weight loss, Chills, Dizziness, Change in appetite, Night Sweats Endocrine: DENIES: Heat/cold intolerance, Polydipsia, Polyuria, Polyphagia Eyes: DENIES: Blurred vision, Diplopia, Eye inflammation, Eye pain, Vision loss , Photosensitivity, Double Vision Ears, nose, mouth, throat: DENIES: Tinnitus, Hearing loss, Vertigo, Nasal discharge, Oral lesions, Throat pain, Hoarseness, Ear Pain, Running Nose, Epistaxis, Sinus Pain, Toothache, Odynophagia Respiratory: DENIES: Apneas, Cough, Snoring, Wheezing, Hemoptysis, Sputum production, Shortness of breath Cardiovascular: DENIES: Chest pain, Palpitations, Syncope, Dyspnea on Exertion , PND, Lower Extremity Edema, Orthopnea, Claudication Gastrointestinal: DENIES: Abdominal pain, Black stools, Bloody stools, Constipation, Diarrhea, Nausea, Vomiting, Difficulty Swallowing, Anorexia Genitourinary: DENIES: Sexual dysfunction, Urinary frequency, Urinary incontinence, Urgency, Hematuria, Dysuria, Nocturia, Penile Discharge, Testicular Pain, Testicular Swelling Musculoskeletal: DENIES: Joint pain, Muscle aches, Stiffness, Joint Swelling, Back pain, Neck pain Integumentary: DENIES: Abnormal pigmentation, Nail changes, Pruritus, Rash Hematologic/lymphatic: DENIES: Bruising, Lymphadenopathy Immunologic/allergic: DENIES: Eczema, Urticaria Neurologic: DENIES: Abnormal gait, Headache, Localized weakness, Paresthesias, Seizures, Speech Problems, Tremor, Poor Balance Psychiatric: COMPLAINS OF: Mood changes, Depression, Suicidal Ideation, DENIES : Anxiety, Confusion, Hallucinations, Agitation, Homicidal Ideation, Delusions Past Family Social History Coded Allergies: No Known Allergies (Verified Allergy, Unknown, 02/10/18) Discontinued Reported Medications Aspirin DR (Aspir-Low) 81 Mg Tabdr 01/16/18 Famotidine (Famotidine) 40 Mg Tab, 40 MG PO HS, #30 TAB 0 Refills 01/16/18 Isosorbide Mononitrate ER (Isosorbide Mononitrate ER) 30 Mg Shawn, 30 MG PO DAILY for Prevent Chest Pain, #30 TAB 0 Refills 01/16/18 Albuterol 8.5 GM Inh (Proair Hfa 8.5 GM Inh) 90 Mcg/Act Aer, 1 PUFF INH Q4H Y for SHORTNESS OF BREATH, #1 INHALER 0 Refills 108 mcg/actuation 01/16/18 Discontinued Scripts Pravastatin (Pravachol) 80 Mg Tab, 80 MG PO HS for Cholesterol Management for 5 Days, TAB 5 Refills Prov:Oracio Zhong MD 01/23/18 Trazodone (Trazodone) 50 Mg Tab, 150 MG PO HS for Mental Health for 5 Days, TAB 5 Refills Prov:Oracio Zhong MD 01/23/18 Current Medications Medications (Trade) Dose Ordered Sig/Jeremías Route Start Time Stop Time Status Last Admin (NS Flush) 2 ml UNSCH PRN IVF 02/10/18 14:45 02/10/18 14:56 (NS Flush) 2 ml BID IV FLUSH 02/10/18 21:00 02/11/18 09:11 (Tylenol) 500 mg Q4H PRN PO 02/10/18 16:30 (Nitrostat Sl) 0.4 mg Q5M PRN SL 02/10/18 16:30 (Aspirin) 325 mg DAILY PO 02/11/18 09:00 02/11/18 09:11 (Zofran Odt) 4 mg Q6H PRN PO 02/10/18 16:30 Family Psych History No family psychiatric history Social History Patient was born and raised in [place], he is homeless in the [facility], single, unemployed, highest level of education is GED Patient's Strengths (min. 2) Verbal communicate Physical Exam No tremors, no EPS, no withdrawal symptoms, no psychomotor agitation or retardation, no gait disturbance Vital Signs Vital Signs Date Time Temp Pulse Resp B/P (MAP) Pulse Ox O2 Delivery O2 Flow Rate FiO2 02/11/18 12:32 97.5 63 20 122/69 (86) 96 02/10/18 17:01 Room Air Lab Results Test 02/10/18 14:50 02/10/18 17:51 02/10/18 21:48 White Blood Count 5.3 TH/MM3 Red Blood Count 4.60 MIL/MM3 Hemoglobin 14.1 GM/DL Hematocrit 41.6 % Mean Corpuscular Volume 90.5 FL Mean Corpuscular Hemoglobin 30.6 PG Mean Corpuscular Hemoglobin Concent 33.8 % Red Cell Distribution Width 14.2 % Platelet Count 277 TH/MM3 Mean Platelet Volume 7.2 FL Neutrophils (%) (Auto) 59.3 % Lymphocytes (%) (Auto) 27.8 % Monocytes (%) (Auto) 11.3 % Eosinophils (%) (Auto) 0.9 % Basophils (%) (Auto) 0.7 % Neutrophils # (Auto) 3.1 TH/MM3 Lymphocytes # (Auto) 1.5 TH/MM3 Monocytes # (Auto) 0.6 TH/MM3 Eosinophils # (Auto) 0.0 TH/MM3 Basophils # (Auto) 0.0 TH/MM3 CBC Comment DIFF FINAL Differential Comment Prothrombin Time 10.1 SEC Prothromb Time International Ratio 1.0 RATIO Activated Partial Thromboplast Time 25.2 SEC Blood Urea Nitrogen 14 MG/DL Creatinine 0.85 MG/DL Random Glucose 104 MG/DL Calcium Level 9.0 MG/DL Magnesium Level 2.2 MG/DL Sodium Level 141 MEQ/L Potassium Level 3.6 MEQ/L Chloride Level 104 MEQ/L Carbon Dioxide Level 27.8 MEQ/L Anion Gap 9 MEQ/L Estimat Glomerular Filtration Rate 96 ML/MIN Total Creatine Kinase 76 U/L 70 U/L 64 U/L Troponin I LESS THAN 0.02 NG/ML LESS THAN 0.02 NG/ML LESS THAN 0.02 NG/ML Mental Status Examination Appearance: Dirty Consciousness: Alert Orientation: x4 Motor Activity: Normal gait Speech: Unremarkable Language: Adequate Fund of Knowledge: Adequate Attention and Concentration: Adequate Memory: Unremarkable Mood: Sad, Irritable Affect: Irritable Thought Process & Associations: Intact Thought Content: Appropriate Hallucination Type: None Delusion Type: None Suicidal Ideation: Yes Suicidal Plan: No Suicidal Intention: No Homicidal Ideation: No Homicidal Plan: No Homicidal Intention: No Insight: Poor Judgment: Poor Assessment & Plan Problem List: (1) Major depressive disorder, recurrent ICD Codes: F33.9 - Major depressive disorder, recurrent, unspecified Assessment & Plan: On psychiatric evaluation today the patient reports symptomatology of depression in the context of current acute medical complaints , hopelessness, lack of communication with family and friends, and employment. The patient reports increased sensitivity to rejection, hopelessness, helplessness, mood swings, worthlessness, decreased appetite and sleep, suicidal ideation with the plan of jumping in front of a car. He has history of depression, but no previous psychiatric hospitalizations, no previous suicidal attempts. He denies the use of illegal drugs and alcohol. Patient has an elevated risk of danger to self. I offered him voluntary admission in psychiatry, he accepted it. Present psychiatric symptoms could be related with major mood disorder, but close in the differential adjustment and malingering have to be considered. Consider starting Prozac 10 mg for depression. Brief supportive psychotherapy provided. Follow-up. Assessment & Plan Estimated LOS: Emmanuel Crenshaw MD February 11, 2018 14:12
--- NOTE | 2018-02-11 15:02 | PD.CARD.PN ---
Subjective Subjective Remarks Denies chest pain at this time. Complains of suicidal thoughts but states he has no intention of carrying out. Objective Medications Current Medications Medications (Trade) Dose Ordered Sig/Jeremías Route Start Time Stop Time Status Last Admin (NS Flush) 2 ml UNSCH PRN IVF 02/10/18 14:45 02/10/18 14:56 (NS Flush) 2 ml BID IV FLUSH 02/10/18 21:00 02/11/18 09:11 (Tylenol) 500 mg Q4H PRN PO 02/10/18 16:30 (Nitrostat Sl) 0.4 mg Q5M PRN SL 02/10/18 16:30 (Aspirin) 325 mg DAILY PO 02/11/18 09:00 02/11/18 09:11 (Zofran Odt) 4 mg Q6H PRN PO 02/10/18 16:30 Vital Signs / I&O Vital Signs Date Time Temp Pulse Resp B/P (MAP) Pulse Ox O2 Delivery O2 Flow Rate FiO2 02/11/18 12:32 97.5 63 20 122/69 (86) 96 02/11/18 12:16 57 02/11/18 08:37 59 02/11/18 08:33 98.2 62 20 116/72 (87) 98 02/11/18 03:28 63 02/11/18 03:12 97.6 57 18 103/61 (75) 99 02/11/18 00:08 60 02/10/18 23:45 97.4 67 18 105/55 (72) 96 02/10/18 20:57 98.1 67 18 110/67 (81) 95 02/10/18 18:20 98.0 59 20 120/64 (82) 98 02/10/18 18:03 110/67 (81) 02/10/18 17:01 61 18 112/66 (81) 97 Room Air 02/10/18 15:30 62 16 123/65 (84) 97 Room Air Physical Exam General: No apparent distress. Lungs: CTA. Cardiac: Regular rate and rhythm with grade 2 systolic murmur right sternal border. GI: Abdomen nontender. Bowel sounds normal. Laboratory Laboratory Tests Test 02/10/18 17:51 02/10/18 21:48 Total Creatine Kinase 70 U/L 64 U/L Troponin I LESS THAN 0.02 NG/ML LESS THAN 0.02 NG/ML Imaging Last 24 hours Impressions Myocardial Perfusion Scan Nuc Med 02/11/18 0000 Signed Impressions: CONCLUSION: 1. No reversible defects to suggest acute ischemia. Assessment and Plan Assessment and Plan * Chest pain: Patient has been seen by parks and recreation worker Dr. De La Torre in the chest pain center. Lexiscan is nonischemic. Patient has been medically cleared at this time and will be transferred to psych unit. Patient has been seen by psychiatry. Patient is agreeable to this plan. Nico Dhillon February 11, 2018 15:02
--- NOTE | 2018-02-11 15:07 | HHI.DCPOC ---
Discharge Care Plan Diagnosis: (1) Chest pain (2) Hypertension (3) Hyperlipidemia (4) Hx of aortic valve replacement (5) Suicidal ideations Goals to Promote Your Health * To prevent worsening of your condition and complications * To maintain your health at the optimal level Directions to Meet Your Goals Take your medications as prescribed Follow your dietary instruction Follow activity as directed Keep your appointments as scheduled Take your immunizations and boosters as scheduled If your symptoms worsen call your PCP, if no PCP go to Urgent Care Center or Emergency Room Smoking is Dangerous to Your Health. Avoid second hand smoke Call the 24-hour hour crisis hotline for domestic abuse at Nico Dhillon February 11, 2018 15:07
--- NOTE | 2018-02-11 15:47 | EKG ---
Date Performed: 02/10/2018 Time Performed: 21:56:59 PTAGE: 47 years EKG: SINUS BRADYCARDIA Intraventricular conduction delay Nonspecific ST and T wave abnormalities ABNORMAL ECG PREVIOUS TRACING : 02/10/2018 17.52 Since previous tracing, no significant change noted DOCTOR: Quoc De La Torre Interpretating Date/Time 02/11/2018 15:47:09
--- NOTE | 2018-02-11 15:49 | EKG ---
Date Performed: 02/10/2018 Time Performed: 17:52:18 PTAGE: 47 years EKG: Sinus rhythm INTRAVENTRICULAR CONDUCTION DELAY Nonspecific ST and T wave abnormalities ABNORMAL ECG WARNING: DATA QUALITY MAY AFFECT INTERPRETATION PREVIOUS TRACING : 02/10/2018 14.31 Since previous tracing, no significant change noted DOCTOR: Quoc De La Torre Interpretating Date/Time 02/11/2018 15:49:35
--- NOTE | 2018-02-11 15:52 | EKG ---
Date Performed: 02/10/2018 Time Performed: 14:31:00 PTAGE: 47 years EKG: Sinus rhythm INTRAVENTRICULAR CONDUCTION DELAY Nonspecific ST and T wave abnormalities ABNORMAL ECG INTERPRETATIO N BASED ON A DEFAULT AGE OF 40 YEARS Since PREVIOUS TRACING , no significant change noted DOCTOR: Quoc De La Torre Interpretating Date/Time 02/11/2018 15:51:08
== END 2018-02-11 16:10 ==
LOC: NEPC 14:02 → NEDH 15:51 → NEPFCDU 19:07
PROVIDERS: ADMIT Internal Medicine Interventional Cardiology; ATTEND Internal Medicine Interventional Cardiology
DX: R07.9 Chest pain, unspecified (principal); F31.9 Bipolar disorder, unspecified; F41.9 Anxiety disorder, unspecified; I10 Essential (primary) hypertension; E78.5 Hyperlipidemia, unspecified; E78.00 Pure hypercholesterolemia, unspecified; J44.9 Chronic obstructive pulmonary disease, unspecified; R45.851 Suicidal ideations; R94.31 Abnormal electrocardiogram [ECG] [EKG]; F17.210 Nicotine dependence, cigarettes, uncomplicated; E66.01 Morbid (severe) obesity due to excess calories; Z68.41 Body mass index [BMI] 40.0-44.9, adult; Z56.0 Unemployment, unspecified; Z95.2 Presence of prosthetic heart valve; Z59.0 Homelessness; Z82.49 Family history of ischemic heart disease and other diseases of the circulatory system
CPT/HCPCS: 71045; 78452; 80048; 82550; 83735; 84484; 85025; 85610; 85730; 93005; 93017; 99285; A9502; G0378; J2785

== ENCOUNTER 2018-02-11 17:04 | Inpatient (IN) | payer OTHER ==
[~2018-02-11] VITALS: Ht 167.6 cm; Wt 115.5 kg
[2018-02-11 18:00] VITALS: BP 127/74; PULSE 62; RESP 18; TEMP 97.7; O2SAT 99
[2018-02-12 06:44] VITALS: BP 132/83; PULSE 61; RESP 20; TEMP 97.4; O2SAT 98
[2018-02-12] MEDS: NICOTINE 21 MG/24 HR PATCH T-DERMAL SCH (09:00)
[2018-02-12] MEDS: FLUoxetine HCL 10 MG CAP PO SCH ×2 (09:00→10:02)
[2018-02-12] MEDS ORDERED: MAGNESIUM HYDROXIDE SUSP 30 ML CUP PO PRN (09:00)
[2018-02-12] MEDS ORDERED: LORazepam 2 MG/ML VIAL IM PRN ×2 (09:00)
[2018-02-12] MEDS ORDERED: ALUMINUM/MAGNESIUM/SIMETH 30 ML CUP PO PRN (09:00)
[2018-02-12] MEDS ORDERED: LORazepam 1 MG TAB PO PRN (09:00)
[2018-02-12] MEDS ORDERED: LORazepam 0.5 MG TAB PO PRN (09:00)
--- NOTE | 2018-02-12 11:29 | HHI.HP ---
Provisional Diagnosis Admission Date February 11, 2018 at 17:04 [place] I. Adjustment disorder with depressed mood vs major depressive disorder, r/o malingering with secondary gain of use in the hospital as a penitentiary [place] II. r/o antisocial personality Certification of Person's Competence To Provide Express and Informed Consent I have personally examined Ronn LiuJr , a person being served at [facility] on, February 12, 2018 11:17. Express and informed consent means consent voluntarily given in writing, by a competent person, after sufficient explanation and disclosure of the subject matter involved to enable the person to make a knowing and willful decision without any element of force, fraud, deceit, duress, or other form of constraint or coercion. This person is 18 years of age or older, is not now known to be incompetent to consent to treatment with a guardian advocate, and does not have a health care surrogate or proxy currently making medical treatment decisions. I have found this person to be one of the following: [x] Competent to provide express and informed consent, as defined above, for voluntary admission to this facility and is competent to provide express and informed consent for treatment. He/she has the consistent capacity to make well reasoned, willful, and knowing decisions concerning his or her medical or mental health treatment. The person fully and consistently understands the purpose of the admission for examination/placement and is fully capable of personally exercising all rights assured [place] Incompetent to provide express and informed consent to voluntary admission, and this is incompetent to provide express and informed consent to treatment. The person must be transferred to involuntary status and a petition for a guardian advocate filed with the Circuit Court. [] Refusing to provide express and informed consent to voluntary admission but is competent to provide express and informed consent for treatment. The person must be discharged or transferred to involuntary status. Form shall be completed within 24 hours of a person's arrival at the receiving facility and filed in the clinical record of each person: 1. Admitted on a voluntary basis 2. Permitted to provide express and informed consent to his/her own treatment 3. Allowed to transfer from involuntary to voluntary status 4. Prior to permitting a person to consent to his or her own treatment after having been previously found incompetent to consent to treatment. History of Present Illness Capacity: Has Capacity HPI The patient is 47-year-old man, homeless in the [place] area, single, employed, with self-reported psychiatric history of depression, bipolar disorder , psychiatric hospitalizations, he was recently discharged from [place] [facility] at the beginning of January due to symptoms of depression and suspected malingering, no previous suicide attempts, with medical history of hypertension , hyperlipidemia, whop resents to emergency room for further evaluation of nonexertional chest pain and headache. Onset 12:30 PM. Location left anterior chest. Characterized as a quick sharp, aching pain. Moderate in severity. No radiation. Duration constant. Associated symptoms dyspnea and hurt to take a deep breath. Stress test was recommended, already done and results are unremarkable. Troponin serious is also negative. She was consulted to psychiatry due to symptoms of depression and suicidal ideation. Psychiatric evaluation I find a patient that is irritable, visibly upset, but reporting that he feels much better now. The patient reports that he has been very depressed, feeling hopeless, helpless, worthless, and having suicidal thoughts with a plan of jumping in front of a car for several weeks now. She reports that as a main stressor for his depression his current economical situation, homelessness, lack of connectedness with family and friends, sense of abandonment and rejection and his chest pain. At this moment the patient reports that if he continues feeling so bad "I am not going to have other option than killing myself". He was able to contract for safety in the ER. He denies visual and auditory hallucinations, denies homicidal ideation. Is logical, coherent and relevant. Goal-directed. Oriented 3. Patient denies the use of illegal drugs and alcohol Review of Systems Constitutional: DENIES: Diaphoretic episodes, Fatigue, Fever, Weight gain, Weight loss, Chills, Dizziness, Change in appetite, Night Sweats Endocrine: DENIES: Heat/cold intolerance, Polydipsia, Polyuria, Polyphagia Eyes: DENIES: Blurred vision, Diplopia, Eye inflammation, Eye pain, Vision loss , Photosensitivity, Double Vision Ears, nose, mouth, throat: DENIES: Tinnitus, Hearing loss, Vertigo, Nasal discharge, Oral lesions, Throat pain, Hoarseness, Ear Pain, Running Nose, Epistaxis, Sinus Pain, Toothache, Odynophagia Respiratory: DENIES: Apneas, Cough, Snoring, Wheezing, Hemoptysis, Sputum production, Shortness of breath Cardiovascular: DENIES: Chest pain, Palpitations, Syncope, Dyspnea on Exertion , PND, Lower Extremity Edema, Orthopnea, Claudication Gastrointestinal: DENIES: Abdominal pain, Black stools, Bloody stools, Constipation, Diarrhea, Nausea, Vomiting, Difficulty Swallowing, Anorexia Genitourinary: DENIES: Sexual dysfunction, Urinary frequency, Urinary incontinence, Urgency, Hematuria, Dysuria, Nocturia, Penile Discharge, Testicular Pain, Testicular Swelling Musculoskeletal: DENIES: Joint pain, Muscle aches, Stiffness, Joint Swelling, Back pain, Neck pain Integumentary: DENIES: Abnormal pigmentation, Nail changes, Pruritus, Rash Hematologic/lymphatic: DENIES: Bruising, Lymphadenopathy Immunologic/allergic: DENIES: Eczema, Urticaria Neurologic: DENIES: Abnormal gait, Headache, Localized weakness, Paresthesias, Seizures, Speech Problems, Tremor, Poor Balance Psychiatric: DENIES: Anxiety, Confusion, Mood changes, Depression, Hallucinations, Agitation, Suicidal Ideation, Homicidal Ideation, Delusions Substance Abuse History Drugs/Alcohol past 12 months He denies the use of alcohol and illegal drugs Past Family Social History Coded Allergies: No Known Allergies (Verified Allergy, Unknown, 02/10/18) Discontinued Reported Medications Aspirin DR (Aspir-Low) 81 Mg Tabdr 01/16/18 Famotidine (Famotidine) 40 Mg Tab, 40 MG PO HS, #30 TAB 0 Refills 01/16/18 Isosorbide Mononitrate ER (Isosorbide Mononitrate ER) 30 Mg Shawn, 30 MG PO DAILY for Prevent Chest Pain, #30 TAB 0 Refills 01/16/18 Albuterol 8.5 GM Inh (Proair Hfa 8.5 GM Inh) 90 Mcg/Act Aer, 1 PUFF INH Q4H Y for SHORTNESS OF BREATH, #1 INHALER 0 Refills 108 mcg/actuation 01/16/18 Discontinued Scripts Pravastatin (Pravachol) 80 Mg Tab, 80 MG PO HS for Cholesterol Management for 5 Days, TAB 5 Refills Prov:Oracio Zhong MD 01/23/18 Trazodone (Trazodone) 50 Mg Tab, 150 MG PO HS for Mental Health for 5 Days, TAB 5 Refills Prov:Oracio Zhong MD 01/23/18 Current Medications Medications (Trade) Dose Ordered Sig/Jeremías Route Start Time Stop Time Status Last Admin (Ativan) 1 mg Q6H PRN PO 02/12/18 09:00 (Ativan Inj) 1 mg Q6H PRN IM 02/12/18 09:00 (Tylenol) 650 mg Q4H PRN PO 02/12/18 09:00 (Milk Of Magnesia Liq) 30 ml DAILY PRN PO 02/12/18 09:00 (Mag-Al Plus Susp Liq) 30 ml Q6H PRN PO 02/12/18 09:00 (Habitrol 21 Mg Patch.24 Hr) 1 patch DAILY T-DERMAL 02/12/18 09:00 (PROzac) 10 mg DAILY PO 02/12/18 09:00 02/12/18 10:02 Miscellaneous Information 1 HS T-DERMAL 02/12/18 21:00 Family Psych History No family psychiatric history Social History Patient was born and raised in [place], he is homeless in the [facility], single, unemployed, highest level of education is GED Patient's Strengths (min. 2) Verbal communication Physical Exam No tremors, no EPS, no psychomotor retardation or agitation, no stiffness Vital Signs Vital Signs Date Time Temp Pulse Resp B/P (MAP) Pulse Ox O2 Delivery O2 Flow Rate FiO2 02/12/18 06:44 97.4 61 20 132/83 (99) 98 Mental Status Examination Appearance: Appropriate Consciousness: Alert Orientation: x4 Motor Activity: Normal gait Speech: Unremarkable Language: Adequate Fund of Knowledge: Adequate Attention and Concentration: Adequate Memory: Unremarkable Mood: Angry Affect: Irritable Thought Process & Associations: Intact Thought Content: Appropriate Hallucination Type: None Delusion Type: None Suicidal Ideation: Yes Suicidal Plan: No Suicidal Intention: No Homicidal Ideation: No Homicidal Plan: No Homicidal Intention: No Insight: Poor Judgment: Poor Assessment & Plan Problem List: (1) Personality disorder, unspecified ICD Codes: F60.9 - Personality disorder, unspecified (2) Adjustment disorder ICD Codes: F43.20 - Adjustment disorder, unspecified Status: Acute Assessment & Plan: On psychiatric evaluation today the patient is quite irritable and oppositional, he reports symptomatology of depression in the context of current acute medical complaints, hopelessness, lack of communication with family and friends, and employment. The patient reports increased sensitivity to rejection, hopelessness, helplessness, mood swings, worthlessness, decreased appetite and sleep, suicidal ideation with the plan of jumping in front of a car. He has history of depression, personality disorder, who was hospitalized recently here in [place] with symptoms of depression and suspected malignant. He denies the use of illegal drugs and alcohol. Patient has an elevated risk of danger to self at this moment. I offered him voluntary admission in psychiatry, he accepted it. Present psychiatric symptoms could be related with major mood disorder, but close in the differential adjustment and malingering have to be considered. Consider starting Prozac 10 mg for depression. Brief supportive psychotherapy provided. Assessment & Plan Estimated LOS: days Emmanuel Randle MD February 12, 2018 11:29
[2018-02-12 18:52] VITALS: BP 125/61; PULSE 61; RESP 20; TEMP 97.6; O2SAT 98
[2018-02-12] MEDS: REMOVE OLD NICODERM (NICOTINE) PATCH T-DERMAL SCH (21:00)
[2018-02-13] MEDS: ACETAMINOPHEN 325 MG TAB PO PRN (01:39)
[2018-02-13 07:03] VITALS: BP 142/78; PULSE 58; RESP 17; TEMP 97.5; O2SAT 93
[2018-02-13 08:06] LABS: BLOOD UREA NITROGEN 11 MG/DL (7-18); CALCIUM 8.8 MG/DL (8.5-10.1); CHLORIDE 104 MEQ/L (98-107); CHOLESTEROL 249 MG/DL (120-200); CREATININE 0.77 MG/DL (0.60-1.30); GLOMERULAR FILTRATION RATE 107 ML/MIN (>89); GLUCOSE,RANDOM 93 MG/DL (74-106); SODIUM (NA) 140 MEQ/L (136-145)
[2018-02-13 08:10] LABS: CHOLESTEROL/ HDL RATIO 8.38 RATIO; HDL CHOLESTEROL 29.7 MG/DL (40.0-60.0); TRIGLYCERIDES 420 MG/DL (42-150)
[2018-02-13] MEDS: NICOTINE 21 MG/24 HR PATCH T-DERMAL SCH (09:00)
[2018-02-13] MEDS: FLUoxetine HCL 10 MG CAP PO SCH (10:02)
--- NOTE | 2018-02-13 15:42 | HHI.PYPN ---
Subjective Remarks Patient initially admitted by Dr. Winchester,'s H&P reviewed and agreed with. I have done the initial admitting psychiatric template orders and on a medication reconciliation review. Patient seen by me today is a somewhat irritable stockily built white male somewhat flushed face. Acknowledging being homeless. Acknowledging that he wants to be homeless that he does not want to attempt to live in a sober living situation or nursing home. He is frustrated because he due to some medical issues was hospitalized lost his job lost his efforts at getting his own place. However he is unwilling to look at options. Other than he being homeless getting a job and saving his money. He does deny suicidality homicidality voice or visions with me at this time. He does acknowledge being an alcoholic but being sober for a couple of weeks. For now we will continue to observe patient overnight for continues to be persistent about wanting to be discharged and can contract for safety we will discharge him to himself he is now started on Prozac Review of Systems Except as stated in HPI: all other systems reviewed are Neg Mental Status Examination Appearance: Appropriate Consciousness: Alert Orientation: x4 Motor Activity: Normal gait Speech: Unremarkable Language: Adequate Fund of Knowledge: Adequate Attention and Concentration: Adequate Memory: Unremarkable Mood: Angry Affect: Irritable Thought Process & Associations: Intact Thought Content: Appropriate Hallucination Type: None Delusion Type: None Suicidal Ideation: Yes Suicidal Plan: No Suicidal Intention: No Homicidal Ideation: No Homicidal Plan: No Homicidal Intention: No Insight: Poor Judgment: Poor Results Labs Test 02/13/18 06:54 Blood Urea Nitrogen 11 MG/DL Creatinine 0.77 MG/DL Random Glucose 93 MG/DL Calcium Level 8.8 MG/DL Sodium Level 140 MEQ/L Potassium Level 4.2 MEQ/L Chloride Level 104 MEQ/L Carbon Dioxide Level 29.0 MEQ/L Anion Gap 7 MEQ/L Estimat Glomerular Filtration Rate 107 ML/MIN Triglycerides Level 420 MG/DL Cholesterol Level 249 MG/DL LDL Cholesterol MG/DL HDL Cholesterol 29.7 MG/DL Cholesterol/HDL Ratio 8.38 RATIO Vitals/IOs Vital Signs Date Time Temp Pulse Resp B/P (MAP) Pulse Ox O2 Delivery O2 Flow Rate FiO2 02/13/18 07:03 97.5 58 17 142/78 (99) 93 Assessment & Plan Problem List: (1) Personality disorder, unspecified ICD Codes: F60.9 - Personality disorder, unspecified (2) Adjustment disorder ICD Codes: F43.20 - Adjustment disorder, unspecified Status: Acute Assessment & Plan Estimated LOS: days patient continues somewhat depressed though more irritable and perhaps somewhat angry at himself. Though it appears she does wish to live homeless and be on his own then with any type of a situation where the people around. If he continues to maintain this posture maintain his contract to do no harm consider discharge tomorrow Justification for Cont. Inpt. Consider discharge tomorrow Discharge Planning Consider discharge tomorrow to self Request HC Surrog/Guard Advoc?: No Tanner Khalil MD February 13, 2018 15:42
[2018-02-13] MEDS ORDERED: hydrOXYzine HCL 50 MG TAB PO PRN (15:45)
[2018-02-13 16:29] LABS: HEMOGLOBIN A1C 5.8 % (4.3-6.0)
[2018-02-13 18:14] VITALS: BP 159/74; PULSE 55; RESP 16; TEMP 97.6; O2SAT 97
[2018-02-13] MEDS ORDERED: risperiDONE ODT 1 MG TAB PO SCH (21:00)
[2018-02-13] MEDS: REMOVE OLD NICODERM (NICOTINE) PATCH T-DERMAL SCH (21:00)
[2018-02-14] MEDS: ACETAMINOPHEN 325 MG TAB PO PRN ×3 (03:27→23:45)
[2018-02-14 06:04] VITALS: BP 116/60; PULSE 100; RESP 20; TEMP 98.1; O2SAT 99
[2018-02-14 06:06] VITALS: BP 123/63; PULSE 57; RESP 19; TEMP 98.2; O2SAT 97
[2018-02-14] MEDS: NICOTINE 21 MG/24 HR PATCH T-DERMAL SCH (09:00)
[2018-02-14] MEDS: FLUoxetine HCL 10 MG CAP PO SCH (09:21)
--- NOTE | 2018-02-14 12:14 | HHI.PYPN ---
Subjective Remarks Patient seen in his room with nurse Potter, chart reviewed, patient compliant medications, patient discussed with nurse. Patient continues to focus on the frustration of not having a job and able to support himself. He also continues to verify that he does not want to go to any type of a fci or sober living facility where multiple people around. He shows marked paranoia and vigilance related to that. However he still denies suicidality homicidality voices or visions. When asked what we could do for him he states "finding a job. When I explained to him our role in the community to help find lodging groups things disorder he declined. Patient continues with his point of view and remains consistent with denying suicidality homicidality voice or visions we will consider discharge tomorrow Review of Systems Except as stated in HPI: all other systems reviewed are Neg Mental Status Examination Appearance: Appropriate Consciousness: Alert Orientation: x4 Motor Activity: Normal gait Speech: Unremarkable Language: Adequate Fund of Knowledge: Adequate Attention and Concentration: Adequate Memory: Unremarkable Mood: Angry Affect: Irritable Thought Process & Associations: Intact Thought Content: Appropriate Hallucination Type: None Delusion Type: None Suicidal Ideation: Yes Suicidal Plan: No Suicidal Intention: No Homicidal Ideation: No Homicidal Plan: No Homicidal Intention: No Insight: Poor Judgment: Poor Results Vitals/IOs Vital Signs Date Time Temp Pulse Resp B/P (MAP) Pulse Ox O2 Delivery O2 Flow Rate FiO2 02/14/18 06:06 98.2 57 19 123/63 (83) 97 Assessment & Plan Problem List: (1) Personality disorder, unspecified ICD Codes: F60.9 - Personality disorder, unspecified (2) Adjustment disorder ICD Codes: F43.20 - Adjustment disorder, unspecified Status: Acute Assessment & Plan Patient remains angry irritable somewhat depressed over showing some signs of Insight and processing if he continues to be consistent consider discharge tomorrow Justification for Cont. Inpt. At this time patient would decompensate if not placed in an appropriate level of care Discharge Planning To be determined Request HC Surrog/Guard Advoc?: Tanner Woods MD February 14, 2018 12:14
[2018-02-14] MEDS: REMOVE OLD NICODERM (NICOTINE) PATCH T-DERMAL SCH (22:11)
[2018-02-15] MEDS: ACETAMINOPHEN 325 MG TAB PO PRN ×4 (03:51→22:29)
[2018-02-15 06:36] VITALS: BP 135/76; PULSE 54; RESP 18; TEMP 97.3; O2SAT 97
[2018-02-15] MEDS: NICOTINE 21 MG/24 HR PATCH T-DERMAL SCH (09:00)
[2018-02-15] MEDS: FLUoxetine HCL 10 MG CAP PO SCH (09:45)
--- NOTE | 2018-02-15 15:42 | HHI.PYPN ---
Subjective Remarks Patient seen and rogers with nurse Kelsey, chart reviewed, patient compliant medication. Patient calm and cooperative continues to verify that he feels he needs employment to get an apartment that work. His problems. He also acknowledges that he does not do well in living situations with other people that he would rather be homeless at this time. He denies suicidality homicidality voice or visions. For now continue treatment. Consider discharge tomorrow Review of Systems Except as stated in HPI: all other systems reviewed are Neg Mental Status Examination Appearance: Appropriate Consciousness: Alert Orientation: x4 Motor Activity: Normal gait Speech: Unremarkable Language: Adequate Fund of Knowledge: Adequate Attention and Concentration: Adequate Memory: Unremarkable Mood: Angry Affect: Irritable Thought Process & Associations: Intact Thought Content: Appropriate Hallucination Type: None Delusion Type: None Suicidal Ideation: Yes Suicidal Plan: No Suicidal Intention: No Homicidal Ideation: No Homicidal Plan: No Homicidal Intention: No Insight: Poor Judgment: Poor Results Vitals/IOs Vital Signs Date Time Temp Pulse Resp B/P (MAP) Pulse Ox O2 Delivery O2 Flow Rate FiO2 02/15/18 06:36 97.3 54 18 135/76 (95) 97 Assessment & Plan Problem List: (1) Personality disorder, unspecified ICD Codes: F60.9 - Personality disorder, unspecified (2) Adjustment disorder ICD Codes: F43.20 - Adjustment disorder, unspecified Status: Acute Assessment & Plan Estimated LOS: days patient continues to deny suicidality homicidality voice or visions. He also does not wish any type of [facility]. He would rather be homeless while working and getting money to get his own apartment Justification for Cont. Inpt. At this time patient would decompensate a place to a lower level of care Discharge Planning Possible discharge tomorrow as a homeless discharge Request HC Surrog/Guard Advoc?: No Tanner Khalil MD February 15, 2018 15:42
[2018-02-15 17:54] VITALS: BP 148/72; PULSE 66; RESP 18; TEMP 97.2; O2SAT 98
[2018-02-15] MEDS: REMOVE OLD NICODERM (NICOTINE) PATCH T-DERMAL SCH (21:00)
[2018-02-16 06:18] VITALS: BP 137/77; PULSE 55; RESP 16; TEMP 98.8; O2SAT 97
[2018-02-16] MEDS: FLUoxetine HCL 10 MG CAP PO SCH (08:36)
[2018-02-16] MEDS: ACETAMINOPHEN 325 MG TAB PO PRN (08:36)
[2018-02-16] MEDS: NICOTINE 21 MG/24 HR PATCH T-DERMAL SCH (08:37)
[2018-02-16] MEDS ORDERED: FLUO10CA4 PO (11:19)
--- NOTE | 2018-02-16 11:23 | HHI.DS ---
Psychiatry Discharge Summary Inpatient Psychiatric care?: Yes Advance Directive: No Reason Not Provided: not available Mental Health AdvanceDirective: No Health Care Proxy: No Admission Admission Date February 11, 2018 at 17:04 Admission Diagnosis: (1) Adjustment disorder ICD Code: F43.20 - Adjustment disorder, unspecified Brief History The patient is 47-year-old man, homeless in the [place] area, single, employed, with self-reported psychiatric history of depression, bipolar disorder , psychiatric hospitalizations, he was recently discharged from [facility] at the beginning of January due to symptoms of depression and suspected malingering, no previous suicide attempts, with medical history of hypertension , hyperlipidemia, whop resents to emergency room for further evaluation of nonexertional chest pain and headache. Onset 12:30 PM. Location left anterior chest. Characterized as a quick sharp, aching pain. Moderate in severity. No radiation. Duration constant. Associated symptoms dyspnea and hurt to take a deep breath. Stress test was recommended, already done and results are unremarkable. Troponin serious is also negative. She was consulted to psychiatry due to symptoms of depression and suicidal ideation. Psychiatric evaluation I find a patient that is irritable, visibly upset, but reporting that he feels much better now. The patient reports that he has been very depressed, feeling hopeless, helpless, worthless, and having suicidal thoughts with a plan of jumping in front of a car for several weeks now. She reports that as a main stressor for his depression his current economical situation, homelessness, lack of connectedness with family and friends, sense of abandonment and rejection and his chest pain. At this moment the patient reports that if he continues feeling so bad "I am not going to have other option than killing myself". He was able to contract for safety in the ER. He denies visual and auditory hallucinations, denies homicidal ideation. Is logical, coherent and relevant. Goal-directed. Oriented 3. Patient denies the use of illegal drugs and alcohol Tobacco Use In Past 30 Days: 5 or More Cigarettes/Day Alcohol Use: 4 or More Times Per Week Hospital Course Patient's hospital course was uneventful his personality issues remains somewhat prominent. He did acknowledge his difficulty with relationships and handling problems or crowded situations. Stating he would rather live homeless and lives in a prison. He denies suicidality homicidality voices or visions. States he wishes to do it this way to get some money together them to find afterwards to find his own place. At this time and no longer meets criteria for inpatient psychiatric care. Patient be discharged today to himself with Rx 1 month follow-up [facility] Results Blood Pressure 137 / 77 Vital Signs Date Time Temp Pulse Resp B/P (MAP) Pulse Ox O2 Delivery O2 Flow Rate FiO2 02/16/18 06:18 98.8 55 16 137/77 (97) 97 Laboratory Results Test 02/13/18 06:54 Cholesterol Level 249 MG/DL (120-200) HDL Cholesterol 29.7 MG/DL (40.0-60.0) Hemoglobin A1c 5.8 % (4.3-6.0) LDL Cholesterol MG/DL (0-99) Triglycerides Level 420 MG/DL (42-150) Summary of Procedures None done Pending results at discharge: No Medications # of Antipsychotic meds at D/C: 0 Approp Antipsych med options 1 - Minimum of three failed multiple trials of monotherapy. 2 - Documented plan to taper to monotherapy due to previous use of multiple meds OR cross-taper in progress at D/C. 3 - Documentation of augmentation of Clozapine. 4 - Justification other than those listed in allowable values 1-3, document here : Discharge Discharge Date: February 16, 2018 Discharge Diagnosis: (1) Adjustment disorder Diagnosis: Principal ICD Code: F43.20 - Adjustment disorder, unspecified Status: Acute Pt Condition on Discharge: Stable Discharge Disposition: Discharge Home Discharge Instructions Diet Instructions: As Tolerated, No Restrictions Activities you can perform: Regular-No Restrictions Scheduled Appointment: [facility] Act Discharge Time > 30 minutes Mental Status Examination Appearance: Appropriate Consciousness: Alert Orientation: x4 Motor Activity: Normal gait Speech: Unremarkable Language: Adequate Fund of Knowledge: Adequate Attention and Concentration: Adequate Memory: Unremarkable Mood: Angry Affect: Irritable Thought Process & Associations: Intact Thought Content: Appropriate Hallucination Type: None Delusion Type: None Suicidal Ideation: Yes Suicidal Plan: No Suicidal Intention: No Homicidal Ideation: No Homicidal Plan: No Homicidal Intention: No Insight: Poor Judgment: Poor Discharge/Advance Care Plan Health Problems: (1) Personality disorder, unspecified (2) Adjustment disorder Goals to promote your health * To prevent worsening of your condition and complications * To maintain your health at the optimal level Directions to meet your goals Take your medications as prescribed Follow your dietary instruction Follow activity as directed Keep your appointments as scheduled Take your immunizations and boosters as scheduled If your symptoms worsen call your PCP, if no PCP go to Urgent Care Center or Emergency Room For 11/04 questions related to your inpatient stay or results of tests pending at discharge, please contact Dr. Tanner Khalil at Smoking is Dangerous to Your Health. Avoid second hand smoking Tanner Khalil MD February 16, 2018 11:23
== END 2018-02-16 15:55 | disposition home or self-care (01) | DRG 882 ==
LOC: H260 17:04
PROVIDERS: ADMIT Psychiatry & Neurology Psychiatry; ATTEND Psychiatry & Neurology Psychiatry
DX: F43.20 Adjustment disorder, unspecified (principal); I10 Essential (primary) hypertension; F60.9 Personality disorder, unspecified; Z59.0 Homelessness; E78.5 Hyperlipidemia, unspecified; Z72.0 Tobacco use
CPT/HCPCS: 80048; 80061; 83036